=== PATIENT | male | born 1940 | race Caucasian/White ===

== ENCOUNTER 2021-12-30 20:34 | Observation (INO) | payer MEDICARE, MEDICAID, SELFPAY ==
--- NOTE | ~2021-12-30 | MR_ITS ---
MRI OF THE BRAIN WITHOUT IV CONTRAST INDICATION: Question CVA. Slurred speech. COMPARISON: None available. TECHNIQUE: Multiplanar multisequence MR imaging of the brain was obtained without IV contrast. FINDINGS: There is no hydrocephalus, extra-axial surface collection, or herniation. Fairly extensive T2 signal changes within the supratentorial white matter, possibly advanced chronic microangiopathy though nonspecific. Etat crible appearance of the basal ganglia bilaterally as the sequela of chronic hypertension. There are also chronic lacunar infarcts within the deep juarez nuclei bilaterally. The major flow voids at the skull base are preserved. There is no acute infarct on diffusion-weighted imaging. There is no intracranial hemorrhage on the gradient recalled echo acquisition. The midline structures are normal. The cerebellar tonsils are normally positioned. The cerebellum and brainstem are normal. The craniocervical junction is normal. Osseous marrow signal intensity is homogenous. The visualized soft tissues are unremarkable. There is a large right mastoid effusion. MR/MR head/brain wo con IMPRESSION: - Study is limited by motion artifact. No definite acute intracranial findings. No acute infarcts accounting for artifact. - Fairly extensive T2 signal changes within the supratentorial white matter, possibly advanced chronic microangiopathy though nonspecific. - Etat crible appearance of the basal ganglia bilaterally as the sequela of chronic hypertension. There are also chronic lacunar infarcts within the deep juarez nuclei bilaterally. - There is a large right mastoid effusion.
--- NOTE | ~2021-12-30 | CT_ITS ---
EXAMINATION: CT ANGIOGRAM HEAD CT ANGIOGRAM NECK CLINICAL INFORMATION: Reason for Exam slurred speech 10+ hrs COMPARISON: None. TECHNIQUE: Initial noncontrast work force advisor imaging of the head and neck was performed. Noncontrast head CT was also performed. Test bolus sequences followed by intravenous administration 70 mL of Omnipaque 350. Helical imaging was performed in the axial plane from the aortic arch to the skull vertex. Delayed postcontrast imaging of the head was also performed. The data was processed at the nanotechnology engineering technologist's workstation for generation of MIP sequences. Angled MIPs and volume rendered reformatted images were also generated at an offline 3D workstation. Stenoses are assessed in accordance with NASCET criteria unless otherwise indicated. DLP: 2758 mGy-cm This CT examination was performed using dose optimization techniques as appropriate, variously including the following: *Automated exposure control. *Adjustment of mA and/or kV according to patient size (this includes techniques or standardized protocols for targeted exams where dose is matched to indication/reason for exam; i.e. extremities or head). *Use of iterative reconstruction technique. FINDINGS: CT Head: There is no evidence of acute intracranial hemorrhage or edematous territorial infarction. Scattered hypoattenuation in the periventricular and deep white matter are consistent with moderate microangiopathy. Chronic lacunar infarcts involving the right posterior putamen and left thalamus. Patel-white matter differentiation is preserved. The ventricles are normal in size and configuration. No evidence for obstructive hydrocephalus. No abnormal mass effect or midline shift. No extra-axial fluid collections. No pathologic intra-axial enhancement or regional oligemia. No acute soft tissue or osseous abnormalities. Right mastoid and middle ear opacification. Near complete opacification of the diminutive left sphenoid sinus. CT Neck: The thyroid gland and remaining cervical soft tissues are within normal limits. Large bulky bridging anterior osteophytes throughout the cervical and upper thoracic spine, likely related to diffuse idiopathic skeletal hyperostosis. Multilevel moderate to advanced degenerative disc disease. No acute osseous abnormality. CT Upper Chest: The visualized lung apices and upper mediastinum are within normal limits. Median sternotomy wires. Neck CTA: CTA of the neck is somewhat limited due to motion. Aortic Arch: Normal contour and caliber. Classic 3 vessel branching pattern of the aortic arch. Great Vessel Origins: No significant stenosis of the branch origins. Right Common Carotid Artery: No focal stenosis or occlusion. Cervical Right Internal Carotid Artery: Mild calcific atherosclerotic disease of the carotid bulb and proximal internal carotid artery without flow-limiting stenosis. Left Common Carotid Artery: No focal stenosis or occlusion. Cervical Left Internal Carotid Artery: Normal opacification without focal stenosis or occlusion. Cervical Right Vertebral Artery: Vessel origin is not well visualized due to motion. No focal stenosis or occlusion. Cervical Left Vertebral Artery: Vessel origin is not well-visualized due to motion. Dominant left vertebral artery. No focal stenosis or occlusion. Brain CTA: Intracranial Internal Carotid Arteries: Calcific atherosclerotic disease of the intracranial internal carotid arteries without occlusion or flow-limiting stenosis. Right Anterior Cerebral Artery: Normal A1 segment. Normal opacification of the distal ANAI segments. Left Anterior Cerebral Artery: Normal A1 segment. Normal opacification of the distal ANAI segments. Anterior Communicating Artery: Normal. Right Middle Cerebral Artery: Mild irregularity and narrowing of the M1 segment. Normal arborization of the distal segments. Left Middle Cerebral Artery: Normal M1 segment of the MCA without focal stenosis or occlusion. Normal arborization of the distal segments. Right Vertebral Artery: Terminates intradurally predominantly as PICA. Left Vertebral Artery: Mild to moderate stenosis of the proximal intradural left vertebral artery related to calcified atherosclerotic disease. Basilar Artery: Normal without focal stenosis or occlusion. Normal appearance of the proximal superior cerebellar arteries. Right Posterior Cerebral Artery: Normal P1 segment. Normal opacification of the distal DATA REPORTING ANALYST segments. Left Posterior Cerebral Artery: Normal P1 segment. Normal opacification of the distal DATA REPORTING ANALYST segments. Normal opacification of the superior sagittal, straight, transverse, and sigmoid sinuses. CT/CT angio head neck IMPRESSION: 1. No acute intracranial abnormality including hemorrhage, mass effect, hydrocephalus, or acute territorial edematous infarction. 2. No arterial high grade stenosis or large vessel occlusion in the head or neck. Of note, evaluation of the proximal vessels or neck is somewhat limited due to motion, most notably the origins of the vertebral arteries which are not visualized. 3. Moderate chronic microangiopathy and chronic lacunar infarcts involving the right basal ganglia and left thalamus. 4. Opacification of the right mastoid air cells and right middle ear cavity. Correlate clinically for otomastoiditis.
--- NOTE | ~2021-12-30 | XR_ITS ---
EXAMINATION: XR CHEST CLINICAL INFORMATION: Cough. COMPARISON: None TECHNIQUE: Frontal portable view of the chest was obtained. 2238 hours FINDINGS: Status post median sternotomy for CABG. Cardiac and mediastinal contours are normal. No acute abnormality. No pulmonary vascular congestion. No focal airspace disease, no pleural effusion or pneumothorax. Multilevel degenerative spondylosis spine. XR/XR chest 1V IMPRESSION: No acute abnormality of the chest.
--- NOTE | ~2021-12-30 | XR_ITS ---
EXAMINATION: XR CHEST CLINICAL INFORMATION: Aspiration COMPARISON: Previous chest x-ray from yesterday TECHNIQUE: Frontal view of the chest was obtained. FINDINGS: The cardiac and mediastinal contours are stable. There are post-CABG changes. The lung volumes are low. There is crowding of the central bronchovascular markings due to low lung volumes. No definite pneumonia is seen. There is no pleural effusion or pneumothorax. No acute bone abnormality. XR/XR chest 1V IMPRESSION: Low lung volumes. No definite pneumonia seen.
--- NOTE | 2021-12-30 20:44 | ECG_ITS ---
Test Reason : DIZZINESS Blood Pressure : / mmHG Vent. Rate : 073 BPM Atrial Rate : 073 BPM P-R Int : 176 ms QRS Dur : 088 ms QT Int : 372 ms P-R-T Axes : 045 -33 062 degrees QTc Int : 409 ms Normal sinus rhythm Left axis deviation Anterior infarct , age undetermined Abnormal ECG No previous ECGs available Referred By: Hannah Camairllo Electronically Signed By:SIMON COOPER
[2021-12-30 20:54] VITALS: BP 126/49; BP 135/71; PULSE 73; PULSE 78; RESP 21; TEMP 36.6; O2SAT 97; BMI 28.5
--- NOTE | 2021-12-30 20:54 | ED_ITS ---
HPI - General Adult General Stated complaint: AMS Stroke? Time Seen by Provider: 12/30/21 20:43 Source: patient, family and EMS Mode of arrival: EMS Limitations: language barrier and other (Slurred speech) History of Present Illness HPI narrative: Patient comes to the emergency room via EMS from home. Patient moved 2 days ago from [place] and just arrived to [place]. Yesterday, the patient was doing well, at baseline. Even this morning, the patient was doing well. Approximately between noon and 13:00 (8-9 hours ago), the patient and his family went to [facility]. The patient started feeling weird, he refused to go out of the car, his son stated the car with him. Patient started having slurred speech, difficulty finding words, had several episodes of urinary incontinence. The patient states that the urinary incontinence has happened before in [place]. The family denies that this has ever happened. Patient states that he has numbness and tingling around his lips and his tongue, patient aware that his speech is not normal. Patient usually has dentures and does not have him on now. However, the family reports that when they went out shopping and the symptoms started, the patient did have his dentures on. Patient denies falling, no head injuries. Patient is on Plavix and aspirin Related Data Allergies Allergy/AdvReac Type Severity Reaction Status Date / Time No Known Allergies Allergy Verified 12/30/21 20:44 Review of Systems Review of Systems: Constitutional : No Weight loss, No Fever, No Chills, No Night Sweats, No Fatigue, No Malaise ENT/Mouth : No Hearing loss, No Ear Pain, No Nasal Congestion, No Sinus Pain, No Hoarseness, No sore throat, No Rhinorrhea, No Swallowing Difficulty Eyes: No Eye Pain, No Swelling, No Redness, No Foreign Body, No Discharge, No Vision Changes Cardiovascular : No Chest Pain, No SOB, No Dyspnea on Exertion, No Orthopnea, No Edema, No Palpitations Respiratory : No Cough, No Sputum, No Wheezing, No Smoke Exposure, No Dyspnea Gastrointestinal : No Nausea, No Vomiting, No Diarrhea, No Constipation, No abdominal Pain, No Hematochezia, No Melena Genitourinary : no irregular bleeding, No Dysuria, No Urinary Frequency, No Hematuria, No Urinary Incontinence, No Urgency, No Flank Pain, No Urinary Flow Changes, No Hesitancy Musculoskeletal : No joint pain, No Myalgias, No Joint Swelling Skin : No Skin Lesions, No rash Neuro : No headache, no dizziness no loss of consciousness, complaining of difficulty speaking, numbness and tingling around the mouth and the tongue Psych : No Anxiety/Panic, No Depression, No SI/HI/AH/VH, No Social Issues, Heme/Lymph: No Bruising, No Bleeding,No Lymphadenopathy Endocrine : No Polyuria, No Polydipsia, No Temperature Intolerance [facility] Past Medical History Medical History (Updated 12/30/21 @ 21:33 by Hannah Camarillo MD) CVA (cerebral vascular accident) Hypertension Surgical History (Updated 12/30/21 @ 21:07 by Hannah Camarillo MD) Hx of CABG Physical Exam ED Const Other: Appearance: Alert. Oriented X3. No acute distress. Eyes: Pupils equal, round and reactive to light. ENT: Pharynx normal. Neck: Normal inspection. Neck supple. No lymph nodes noted. No crepitus CVS: Normal heart rate and rhythm. Pulses normal. Normal S1 and S2 Respiratory: No respiratory distress. Breath sounds normal. No Wheezing. No rales Abdomen: Soft and nontender. No rigidity. No distention. Skin: Skin warm and dry. Normal skin color. Normal skin turgor. Extremities: +2 pitting edema bilaterally No Lacerations. No Rash Neuro: Oriented X 3. Strength 2/5 in both upper extremities (per patient his strength is at baseline) complaining of difficulty moving both legs (patient states that his legs feel very heavy) Psych: calm, cooperative, normal affect NIH Stroke Scale Level of Consciousness: Alert Level of Consciousness Questions: Answers both questions correctly Level of Consciousness Commands: Performs both tasks correctly Best Gaze: Normal Visual: No visual loss Facial Palsy: Normal Motor Arm (Right): No drift Motor Arm (Left): No drift Motor Leg (Right): Drift Motor Leg (Left): Drift Limb Ataxia: Absent Sensory: Normal Best Language: Mild to moderate aphasia Dysarthia: Mild to moderate dysarthria Extinction and Inattention: No abnormality Score: 4 Course Course Course Narrative: Patient is outside of the window of treatment. All the labs head CT and CTA pending. Patient not a candidate for tPA as he is outside of the window of treatment This is likely a CVA versus TIA. According to the daughter, he has history of 5 CVAs, all which happen in 2004?. Patient will need an MRI in the morning. I discussed the patient with Dr. Callahan who accepted the patient, but will need an update of the patient's labs and CTs. Hemorrhagic stroke not suspected at this time. All Of patient's labs and imaging pending. sign out given to Dr. Suazo Discharge Plan Discharge Clinical Impression: Acute CVA (cerebrovascular accident) Patient Disposition: Admitted As Inpatient
[2021-12-30 20:59] VITALS: BP 126/49; PULSE 72; RESP 22; TEMP 37.3; O2SAT 96
[2021-12-30 21:46] LABS: Basophils Percent Auto 0.2 % (0-2); Lymphocytes Percent Auto 9.4 % (20-40); Mean Corpuscular HGB Conc 33.3 g/dl (31.0-36.0); Mean Corpuscular Hemoglobin 30.2 pg (27.0-33.0); PLT CLUMP 1; SCAN SMEAR FLAG 1
[2021-12-30 21:47] LABS: Appearance Urine Cloudy; Color Urine Yellow; Glucose Urine UA Negative (Negative); Leukocyte Esterase Urine Large (3+) (Negative); Nitrite Urine Negative (Negative); PH 6.5 (5.0-9.0); Urine Blood Moderate (2+) (Negative); Urine Ketones Trace mg/dL (Negative); Urine Protein 30 (1+) mg/dL (Neg-Trace)
[2021-12-30 21:48] LABS: Eosinophils Percent Auto 0.1 % (0-4); Hematocrit 38.1 % (42.0-52.0); Hemoglobin 12.7 g/dl (14.0-18.0); Imm Gran Abs Auto 0.07 X10*3/uL (0.00-0.03); Imm Gran Pct Auto 0.6 % (0.0-0.4); Lymphocytes Absolute Auto 1.2 X10*3/uL (1.2-4.9); Mean Corpuscular Volume 90.5 fL (80.0-98.0); Mean Platelet Volume 10.4 fL (9.4-12.4); Monocytes Absolute Auto 1.2 X10*3/uL (0.1-1.2); Monocytes Percent Auto 9.8 % (2-11); Neutrophils Percent Auto 79.9 % (45-73); Red Blood Count 4.21 X10*6/uL (4.60-5.80)
[2021-12-30 21:54] LABS: MANUAL DIFF FLAG NO; Platelet Count 133 X10*3/uL (160-400); White Blood Count 12.5 X10*3/uL (4.8-10.8)
[2021-12-30 21:58] LABS: INTERNATIONAL NORM RATIO 1.1 (0.9-1.1)
[2021-12-30 22:02] LABS: COVID-19 Test Negative (Negative)
[2021-12-30 22:04] LABS: Alanine Aminotransferase 14 U/L (0-40); Alkaline Phosphatase 75 U/L (39-117); Amphetamine Screen Urine Not Detected (Not Detect); Anion Gap 14 (12-20); Aspartate Amino Transferase 25 U/L (5-37); Barbiturates, Urine Not Detected (Not Detect); Benzodiazepines Screen Urine Not Detected (Not Detect); Bilirubin Direct 0.6 mg/dL (0.0-0.5); Bilirubin Total 1.4 mg/dL (0.0-1.0); Blood Urea Nitrogen 17 mg/dL (9-16); Calcium 8.9 mg/dL (8.4-10.2); Cannabinoid Screen Urine Not Detected (Not Detect); Carbon Dioxide 26 mmol/L (22-29); Chloride 103 mmol/L (96-108); Cocaine Screen Urine Not Detected (Not Detect); Creatinine Clr Calc Pharmacy 62.4; Estimated Glomerular Filt Rate > 60; Ethanol < 10 mg/dL; Fentanyl, urine Not Detected (Not Detect); Glucose Random 118 mg/dL (60-115); Lipase 12 U/L (8-78); Magnesium 1.9 mg/dL (1.6-2.6); Opiate Screen Urine Not Detected (Not Detect); Phencyclidine Screen Urine Not Detected (Not Detect); Potassium 4.1 mmol/L (3.3-5.1); Sodium 139 mmol/L (135-145); Total Protein 6.7 g/dL (6.5-8.0)
[2021-12-30] MEDS: iohexoL 350 MG/ML 100 ML INFUS..BTL IV (22:06)
[2021-12-30 22:08] LABS: B Type Natriuretic Peptide 142 pg/mL (<100); Troponin-I High Sensitivity 7.8 ng/L (<3.5-35.0)
[2021-12-30 22:11] LABS: Bacteria Urine 3+ (None Seen); Hyaline Casts Urine 0-2 /LPF (0-2); RBC Urine >20 /HPF (0-2); Squamous Epithelial Cell Urine 0-2 /HPF (0-2); UACC Culture Trigger YES; WBC Urine >50 /HPF (0-5)
[2021-12-30] MEDS: cefTRIAXone sodium 1 GM in 0.9 % Sodium Chloride 50 ML IV (22:53)
[2021-12-30 23:11] LABS: Lactic Acid 1.1 mmol/L (0.5-2.0)
[2021-12-30] MEDS: Furosemide 100 MG/10 ML VIAL 60 MG IVPUSH (23:18)
[2021-12-30 23:45] VITALS: BP 138/68; PULSE 73; RESP 16; TEMP 36.1; O2SAT 98
--- NOTE | 2021-12-30 23:52 | P.HPHOSP_ITS ---
History of Present Illness Date of Service: 12/30/21 Chief Complaint: urinary incontinence This is an 81-year-old male with past medical history of hypertension, CABG, reported CVA came in from [place] about 2 days ago comes into the hospital with complaints of urinary incontinence and according to family difficult speech. Patient is [place]-speaking only, history is obtained with the help of an spray gun striper Patient reports that he came into the hospital because of urinary incontinence for the past 2 days. His daughter had reported to the ED physician that this is new although patient reports that he has been going on for 2 days, visit also reported a slurred speech, when asked the patient about it, he reports that he has had slurred speech but that is due to his history of CVA and he does not feel that his speech is more slurred than normal. He complaints of chronic lower extremity weakness for which he uses a wheeled walker, he denies any new numbness tingling, no facial numbness or tingling, no facial droop, denies any chest pain, no shortness of breath, no abdominal pain nausea or vomiting, no diarrhea constipation, he does report urinary frequency and incontinence, no dysuria, has urgency Denies lower extremity edema. Reports chronic shortness of breath that has not worsened, and no cough. Patient denies any bowel incontinence On arrival to the ED patient hemodynamically stable with no significant abnormal vitals, blood pressure of 126/49, Labs are significant for WBC count of 12.5, hemoglobin 12.7, hematocrit 38.1, lactic acid of 1.1, BNP of 142, UA that is positive for leukocyte Estrace sent many WBC UDS negative, alcohol less than 10, Head and neck CT angiogram shows no acute intracranial abnormality including hemorrhage, mass effect, hydrocephalus, or acute territorial edematous infarction Patient started on IV antibiotics and will be admitted for further evaluation Review of Systems Review of Systems: Yes all other systems are reviewed and are negative PENDING SALE TO [facility] Medical History (Updated 12/31/21 @ 06:41 by Jose Callahan MD) CAD (coronary artery disease) CHF (congestive heart failure) CVA (cerebral vascular accident) Hypertension Family History (Updated 12/31/21 @ 06:39 by Jose Callahan MD) Other No family history of cerebrovascular accident (CVA) Surgical History (Updated 12/31/21 @ 06:39 by Jose Callahan MD) H/O hernia repair History of appendectomy Hx of CABG Social History (Updated 12/31/21 @ 06:39 by Jose Callahan MD) Alcohol intake: never Patient Tobacco Use Status: Never used Tobacco Use of substances other than those prescribed or required for medical reasons: No Advance Directives: No Advance Directives Information Provided: No Meds Allergies Allergy/AdvReac Type Severity Reaction Status Date / Time No Known Allergies Allergy Verified 12/30/21 20:44 Active Medications: Current Medications Acetaminophen (Acetaminophen 325 Mg Tablet) 650 mg PO Q6H PRN PRN Reason: Pain, Mild (Pain Scale 1-3) Docusate Sodium (Docusate Sodium 100 Mg Capsule) 100 mg PO DAILY PRN PRN Reason: Constipation Enoxaparin Sodium (Enoxaparin Sodium 40 Mg/0.4 Ml Syringe) 40 mg SUBCUT Q24H [place] Ceftriaxone Sodium 1 gm/ (Sodium Chloride) 50 mls @ 100 mls/hr IV Q24H [place] Ondansetron HCl (Ondansetron Hcl 4 Mg/2 Ml Vial) 4 mg IVPUSH Q8H PRN PRN Reason: Nausea and Vomiting Pharmacy Consult (Consult Rx Perform Med Rec) 1 each MISCELLANE ONCE PRN PRN Reason: Consult order Sodium Chloride (0.9 % Sodium Chloride Flush 3 Ml Syringe) [facility] Medications Medication Instructions Recorded Confirmed Last Taken Type amlodipine 10 mg tablet 10 mg PO DAILY 12/30/21 12/30/21 Unknown History aspirin 81 mg tablet 81 mg PO DAILY 12/30/21 12/30/21 Unknown History carvedilol 12.5 mg tablet 12.5 mg PO BID 12/30/21 12/30/21 Unknown History clopidogrel 75 mg tablet 75 mg PO DAILY 12/30/21 12/30/21 Unknown History doxazosin 4 mg tablet 4 mg PO DAILY 12/30/21 12/30/21 Unknown History enalapril maleate 20 mg tablet 20 mg PO BID 12/30/21 12/30/21 Unknown History famotidine 20 mg tablet 20 mg PO DAILY 12/30/21 12/30/21 Unknown History furosemide 20 mg tablet 20 mg PO DAILY 12/30/21 12/30/21 Unknown History gabapentin 100 mg tablet 100 mg PO QPM 12/30/21 12/30/21 Unknown History pravastatin 40 mg PO 1XD 12/30/21 12/30/21 Unknown History Physical Exam Vital Signs and Narrative: Vital Signs: Last Vital Signs Temp 99.2 F 12/30/21 20:59 Pulse 72 12/30/21 20:59 Resp 22 H 12/30/21 20:59 BP 126/49 L 12/30/21 20:59 Pulse Ox 96 12/30/21 20:59 O2 Del Method 12/30/21 20:59 BMI result Body Mass Index 28.5 Const: General: cooperative and no acute distress Orientation/consciousness: patient oriented x3 Eyes: General: appearance normal, both eyes and all related structures Pupils: Equal, round and reactive pupils present Resp: Effort & Inspection: normal respiratory effort Cardio: Rate: regular rate Rhythm: regular rhythm GI: Palpation (GI): Soft to palpation Auscultation: normal bowel sounds Skin: General skin exam: no rashes or lesions noted Neuro: Other: Cranial nerves 2-12 intact, 4/5 in upper extremities 2 to pain and squeezing my hands rather than weakness, lower extremity strength 5/5 bilaterally General: patient oriented x3 Cranial nerves: Yes Equal, round and reactive pupils present Cognition (Neuro): normal cognition Extrem: Other: Strength is 4/5 in upper extremity, but patient reports pain rather than weakness No pedal edema noted by me General: Yes normal to inspection and Yes no pedal edema Results Labs CBC and Chem 7: 12/30/21 21:28 12/30/21 21:28 Labs: Laboratory Results - last 24 hr 12/30/21 12/30/21 12/30/21 21:28 21:28 21:28 MCV 90.5 MCH 30.2 MCHC 33.3 RDW 13.0 Plt Count 133 L MPV 10.4 Immature Gran % (Auto) 0.6 H Neut % (Auto) 79.9 H Lymph % (Auto) 9.4 L [place] % (Auto) 9.8 Eos % (Auto) 0.1 Baso % (Auto) 0.2 Lymph # (Auto) 1.2 [place] # (Auto) 1.2 Eos # (Auto) 0.0 Baso # (Auto) 0.0 Abs Immat Gran (auto) 0.07 H Absolute Neuts (auto) 10.0 H Absolute Nucleated RBC 0.000 Nucleated RBC % (auto) 0.0 PT 13.0 INR 1.1 Anion Gap 14 Estim Creat Clear Calc 62.4 Estimated GFR > 60 Random Glucose 118 H Lactic Acid Calcium 8.9 Magnesium 1.9 Total Bilirubin 1.4 H Direct Bilirubin 0.6 H AST 25 ALT 14 Alkaline Phosphatase 75 B-Natriuretic Peptide Total Protein 6.7 Albumin 4.0 Lipase 12 Urine Color Urine Appearance Urine pH Ur Specific [place] Urine Protein Urine Glucose (UA) Urine Ketones Urine Blood Urine Nitrite Ur Leukocyte Esterase Urine RBC Urine WBC Ur Squamous Epith Cells Urine Bacteria Hyaline Casts Urine Opiates Screen Urine Fentanyl Screen Ur Barbiturates Screen Ur Phencyclidine Scrn Ur Amphetamines Screen U Benzodiazepines Scrn Urine Cocaine Screen U Marijuana (THC) Screen Ethyl Alcohol < 10 COVID-19 (EARL) COVID-19 Home Leasing 12/30/21 12/30/21 12/30/21 21:28 21:28 21:28 MCV MCH MCHC RDW Plt Count MPV Immature Gran % (Auto) Neut % (Auto) Lymph % (Auto) [place] % (Auto) Eos % (Auto) Baso % (Auto) Lymph # (Auto) [place] # (Auto) Eos # (Auto) Baso # (Auto) Abs Immat Gran (auto) Absolute Neuts (auto) Absolute Nucleated RBC Nucleated RBC % (auto) PT INR Anion Gap Estim Creat Clear Calc Estimated GFR Random Glucose Lactic Acid Calcium Magnesium Total Bilirubin Direct Bilirubin AST ALT Alkaline Phosphatase B-Natriuretic Peptide 142 H Total Protein Albumin Lipase Urine Color Yellow Urine Appearance Cloudy Urine pH 6.5 Ur Specific [place] 1.020 Urine Protein 30 (1+) H Urine Glucose (UA) Negative Urine Ketones Trace Urine Blood Moderate (2+) H Urine Nitrite Negative Ur Leukocyte Esterase Large (3+) H Urine RBC >20 H Urine WBC >50 H Ur Squamous Epith Cells 0-2 Urine Bacteria 3+ Hyaline Casts 0-2 Urine Opiates Screen Urine Fentanyl Screen Ur Barbiturates Screen Ur Phencyclidine Scrn Ur Amphetamines Screen U Benzodiazepines Scrn Urine Cocaine Screen U Marijuana (THC) Screen Ethyl Alcohol COVID-19 (EARL) Negative COVID-19 BioSET Com See Note 12/30/21 12/30/21 21:28 22:51 MCV MCH MCHC RDW Plt Count MPV Immature Gran % (Auto) Neut % (Auto) Lymph % (Auto) [place] % (Auto) Eos % (Auto) Baso % (Auto) Lymph # (Auto) [place] # (Auto) Eos # (Auto) Baso # (Auto) Abs Immat Gran (auto) Absolute Neuts (auto) Absolute Nucleated RBC Nucleated RBC % (auto) PT INR Anion Gap Estim Creat Clear Calc Estimated GFR Random Glucose Lactic Acid 1.1 Calcium Magnesium Total Bilirubin Direct Bilirubin AST ALT Alkaline Phosphatase B-Natriuretic Peptide Total Protein Albumin Lipase Urine Color Urine Appearance Urine pH Ur Specific [place] Urine Protein Urine Glucose (UA) Urine Ketones Urine Blood Urine Nitrite Ur Leukocyte Esterase Urine RBC Urine WBC Ur Squamous Epith Cells Urine Bacteria Hyaline Casts Urine Opiates Screen Not Detected Urine Fentanyl Screen Not Detected Ur Barbiturates Screen Not Detected Ur Phencyclidine Scrn Not Detected Ur Amphetamines Screen Not Detected U Benzodiazepines Scrn Not Detected Urine Cocaine Screen Not Detected U Marijuana (THC) Screen Not Detected Ethyl Alcohol COVID-19 ([facility]) COVID-19 Clin Com Imaging Radiologist's Impressions: Impressions Head/Neck CTA 12/30/21 22:06 IMPRESSION: 1. No acute intracranial abnormality including hemorrhage, mass effect, hydrocephalus, or acute territorial edematous infarction. 2. No arterial high grade stenosis or large vessel occlusion in the head or neck. Of note, evaluation of the proximal vessels or neck is somewhat limited due to motion, most notably the origins of the vertebral arteries which are not visualized. 3. Moderate chronic microangiopathy and chronic lacunar infarcts involving the right basal ganglia and left thalamus. 4. Opacification of the right mastoid air cells and right middle ear cavity. Correlate clinically for otomastoiditis. Chest X-Ray 12/30/21 22:39 IMPRESSION: No acute abnormality of the chest. Assessment and Plan (1) Urinary incontinence: Status: Acute (2) Acute UTI: Status: Acute (3) Slurred speech: Status: Acute Plan 81-year-old male who presents to the hospital after arriving from [place] 2 days ago, with a reported history of CAD status post CABG, CHF, HTN, and history of CVA presents to the hospital with urinary incontinence # urinary incontinence - acute - likely secondary to UTI versus CVA less likely - will treat with IV antibiotic - follow cultures - monitor for improvement in bladder control - no history of back injury, no evidence of cauda equina # UTI - has urinary incontinence, significant positive UA - will treat with IV antibiotics - follow cultures # slurred speech? - patient is not wearing his dentures therefore difficult to say but per patient this is not new - a does have upper extremity weakness although it is more related to pain rather than weakness and is bilateral - given the acute urinary incontinence, as well as possible slurred speech noted by family, will obtain MRI of the brain to rule out acute CVA # hypertension - stable - continue her antihypertensives # history of CABG - continue home medications - patient advised to follow with PCP on discharge for evaluation of his meds as he is on Plavix and aspirin # CHF - none exacerbation - continue home Lasix DVT prophylaxis: Lovenox Quality Stroke Does the patient have a stroke diagnosis?: No VTE Prior VTE?: No VTE Risk Level:: Medical - moderate - high VTE Device Contraindication: Treatment Not Indicated VTE Drug Contraindication: N/A - Med Ordered
[2021-12-30 23:59] LABS: Glucose, Whole Blood 115 mg/dL (60-115)
[2021-12-31] VITALS (9 sets, daily range): BP systolic 108–146; BP diastolic 52–72; PULSE 59–78; RESP 16–22; TEMP 35.3–39; O2SAT 95–100
[2021-12-31] MEDS: 0.9 % Sodium Chloride Flush 3 ML SYRINGE IVFLUSH ×4 (00:27→21:14)
[2021-12-31] MEDS: Enoxaparin Sodium 40 MG/0.4 ML SYRINGE SUBCUT ×2 (00:27→21:08)
--- NOTE | 2021-12-31 04:47 | PC.NURSE ---
Patient noted to have dilated pupils, non-reactive to light. Patient's VSS. Patient note to be incontinent of urine, bed sheet changed, personal care provided by by RN's. Dr. Callahan notified via Scaled Inference.
--- NOTE | 2021-12-31 05:06 | PC.NURSE ---
Pt's mentl status assessed with resource recovery engineer at bedside. Patient is alert and oriented x3. Patient denies any pain discomfort. Patient denies SOB. [id number] reports his vision is at baseline-no double/blurry vision. Dr. Callahan notified.
--- NOTE | 2021-12-31 07:15 | PC.NURSE ---
Nurse to nurse report called to C RN, patient to be transferred to room 471-1.
--- NOTE | 2021-12-31 07:15 | PHA.MEDREC ---
Pharmacy Consult ? Medication Reconciliation Pharmacy has completed the medication reconciliation. Reviewed med rec done by nursing; pt has no claim history and came from [place] recently
[2021-12-31] MEDS: Acetaminophen 325 MG TABLET 650 MG PO (08:25)
[2021-12-31 09:06] LABS: MANUAL DIFF FLAG NO
[2021-12-31 09:12] LABS: Basophils Percent Auto 0.2 % (0-2); Hematocrit 37.3 % (42.0-52.0); Hemoglobin 12.5 g/dl (14.0-18.0); Imm Gran Pct Auto 0.7 % (0.0-0.4); Lymphocytes Absolute Auto 1.2 X10*3/uL (1.2-4.9); Mean Corpuscular HGB Conc 33.5 g/dl (31.0-36.0); Mean Corpuscular Hemoglobin 30.3 pg (27.0-33.0); Mean Corpuscular Volume 90.3 fL (80.0-98.0); Mean Platelet Volume 10.8 fL (9.4-12.4); Monocytes Percent Auto 6.9 % (2-11); Neutrophils Absolute Auto 12.5 x10*3/uL (2.0-8.3); Neutrophils Percent Auto 84.2 % (45-73); Platelet Count 117 X10*3/uL (160-400); Red Blood Count 4.13 X10*6/uL (4.60-5.80); Red Cell Distribution Width 13.1 % (11.0-16.0); White Blood Count 14.8 X10*3/uL (4.8-10.8)
[2021-12-31 09:27] LABS: Anion Gap 16 (12-20); Blood Urea Nitrogen 17 mg/dL (9-16); Calcium 8.8 mg/dL (8.4-10.2); Carbon Dioxide 25 mmol/L (22-29); Chloride 105 mmol/L (96-108); Creatinine Clr Calc Pharmacy 60.3; Estimated Glomerular Filt Rate 60; Glucose Random 119 mg/dL (60-115); Potassium 4.1 mmol/L (3.3-5.1); Sodium 142 mmol/L (135-145)
[2021-12-31] MEDS: Doxazosin Mesylate 2 MG TABLET 4 MG PO (09:40)
[2021-12-31] MEDS: Famotidine 20 MG TABLET PO (09:40)
[2021-12-31] MEDS: Clopidogrel Bisulfate 75 MG TABLET PO (09:40)
[2021-12-31] MEDS: Pravastatin Sodium 40 MG TABLET PO (09:40)
[2021-12-31] MEDS: Enalapril Maleate 10 MG TABLET 20 MG PO ×2 (09:40→21:07)
[2021-12-31] MEDS: Furosemide 20 MG TABLET PO (09:40)
[2021-12-31] MEDS: amLODIPine Besylate 10 MG TABLET PO (09:41)
[2021-12-31] MEDS: Aspirin Enteric Coated 81 MG TABLET.DR PO (09:56)
[2021-12-31] MEDS: carvediloL 12.5 MG TABLET PO ×2 (09:56→21:07)
--- NOTE | 2021-12-31 10:17 | MHC.CM.PN ---
EMR REVIEWED, PT ADMITTED W/UTI AND ?CVA, CM MET W/PT VIA INTERNET MARKETING CONSULTANT, PT DELIVERED IMM, ANSWERED A FEW QUESTIONS THEN DIRECTED CM TO CONTACT DTR, WHEN CM ATTEMPTED TO CALL PT'S DTR RAMIREZ, PT'S SON LUCIANO ANSWERED PHONE AND PUT RAMIREZ BOOTH USHER WELL, LUCIANO VERIFIED PT HAS BEEN HERE FROM [place] FOR A FEW DAYS, THAT PT HAS A CANE/WALKER FOR DME AND LIVES W/BOTH LUCIANO AND RAMIREZ AT ADDRESS ON [facility], LUCIANO AND RAMIREZ VERIFIED INSURANCE HAS NOT BEEN CHANGED FROM [place] MEDICARE AND PLAN TO ASSIST PT TO DO SO AND WILL ASSIST PT WITH GETTING A PCP AFTER PT'S MEDICARE IS SWITCHED. ANTIC PT WILL D/C HOME NO SERVICES HE HAS NO PCP W/FAMILY FOR TRANSPORT.
[2021-12-31] MEDS: diphenhydrAMINE HCL 50 MG/ML VIAL 25 MG IVPUSH (12:54)
[2021-12-31] MEDS: methylPREDNISolone Sod Succ 125 MG/2 ML VIAL IVPUSH (12:54)
--- NOTE | 2021-12-31 12:55 | P.PNIM_ITS ---
Subjective Subjective Date of Service: 01/01/22 Interval History: history obtained via lang interpreter, patient noted to have prolonged phase of chewing, as per patient related to not wearing dentures, patient denies headache, dizziness, no new weakness of upper or lower extremity, later after returning from MRI patient noted to have respiratory distress with bilateral expiratory wheeze, tachypnea, oxygen remained stable 94/95 on 2 L. Review of Systems STRATEGY CONSULTANT no headache no dizziness CVS no chest pain GI no nausea, no vomiting, no change in abdominal distension skin no rash Physical Exam Vital Signs: Vital Signs: Last Vital Signs Temp 102.2 F H 12/31/21 12:46 Pulse 77 12/31/21 12:46 Resp 20 12/31/21 12:46 BP 134/59 L 12/31/21 12:46 Pulse Ox 97 12/31/21 12:46 O2 Del Method 12/31/21 12:46 O2 Flow Rate 2 12/31/21 12:46 BMI result Body Mass Index 28.5 Const: Other: General awake alert, mild acute distress. Neck no JVD. CVS regular rate rhythm, Respiratory lungs bilateral expiratory wheeze, no use of accessory muscles Gastrointestinal abdomen soft, distended,nontender, bowel sounds audible,no guarding , no rigidity. Extremities noedema. Neuro . mild left facial weakness, mild left-sided weakness, no pronator drift,speech thick Skin no rash psych appropriate affect Objective Data Active Medications Acetaminophen (Acetaminophen 325 Mg Tablet) 650 mg PO Q6H PRN PRN Reason: Pain, Mild (Pain Scale 1-3) Last Admin: 12/31/21 08:25 Dose: 650 mg Documented By: COLE Albuterol/Ipratropium (Albuterol/Iprat 2.5/0.5mg 3 Ml Ampul.Neb) 3 ml INHALE Q2H PRN PRN Reason: sob Amlodipine Besylate (Amlodipine Besylate 10 Mg Tablet) 10 mg PO DAILY [facility]; Protocol Last Admin: 12/31/21 09:41 Dose: 10 mg Documented By: COLE Aspirin (Aspirin Enteric Coated 81 Mg Tablet.) 81 mg PO DAILY [facility] Last Admin: 12/31/21 09:56 Dose: 81 mg Documented By: COLE Aspirin (Aspirin Enteric Coated 81 Mg Tablet.) 81 mg PO DAILY [facility] Carvedilol (Carvedilol 12.5 Mg Tablet) 12.5 mg PO BID [facility]; Protocol Last Admin: 12/31/21 09:56 Dose: 12.5 mg Documented By: COLE Clopidogrel Bisulfate (Clopidogrel Bisulfate 75 Mg Tablet) 75 mg PO DAILY [facility] Last Admin: 12/31/21 09:40 Dose: 75 mg Documented By: COLE Docusate Sodium (Docusate Sodium 100 Mg Capsule) 100 mg PO DAILY PRN PRN Reason: Constipation Doxazosin Mesylate (Doxazosin Mesylate 2 Mg Tablet) 4 mg PO DAILY [facility]; Protocol Last Admin: 12/31/21 09:40 Dose: 4 mg Documented By: COLE Enalapril Maleate (Enalapril Maleate 10 Mg Tablet) 20 mg PO BID [facility]; Protocol Last Admin: 12/31/21 09:40 Dose: 20 mg Documented By: COLE Enoxaparin Sodium (Enoxaparin Sodium 40 Mg/0.4 Ml Syringe) 40 mg SUBCUT BEDTIME [facility] Last Admin: 12/31/21 00:27 Dose: 40 mg Documented By: ESPERANZA Famotidine (Famotidine 20 Mg Tablet) 20 mg PO DAILY [facility] Last Admin: 12/31/21 09:40 Dose: 20 mg Documented By: COLE Furosemide (Furosemide 20 Mg Tablet) 20 mg PO DAILY [facility]; Protocol Last Admin: 12/31/21 09:40 Dose: 20 mg Documented By: COLE Gabapentin (Gabapentin 100 Mg Capsule) 100 mg PO BEDTIME [place] Gabapentin (Gabapentin 100 Mg Capsule) 100 mg PO BEDTIME [facility] Ceftriaxone Sodium 1 gm/ (Sodium Chloride) 50 mls @ 100 mls/hr IV Q24H [place] Piperacillin Sod/Tazobactam (Sod 3.375 gm/ Sodium Chloride) 50 mls @ 100 mls/hr IV Q6H [facility] Ondansetron HCl (Ondansetron Hcl 4 Mg/2 Ml Vial) 4 mg IVPUSH Q8H PRN PRN Reason: Nausea and Vomiting Pharmacy Consult (Consult Rx Perform Med Rec) 1 each MISCELLANE ONCE PRN PRN Reason: Consult order Pravastatin Sodium (Pravastatin Sodium 40 Mg Tablet) 40 mg PO DAILY [facility] Last Admin: 12/31/21 09:40 Dose: 40 mg Documented By: COLE Sodium Chloride (0.9 % Sodium Chloride Flush 3 Ml Syringe) 3 ml IVFLUSH QSHIFT [place] Last Admin: 12/31/21 08:15 Dose: 3 ml Documented By: COLE Labs CBC & Chem 7: 01/01/22 06:15 01/01/22 06:15 Labs: Laboratory Results - last 24 hr 12/30/21 12/30/21 12/30/21 21:24 21:28 21:28 MCV 90.5 MCH 30.2 MCHC 33.3 RDW 13.0 Plt Count 133 L MPV 10.4 Immature Gran % (Auto) 0.6 H Neut % (Auto) 79.9 H Lymph % (Auto) 9.4 L [place] % (Auto) 9.8 Eos % (Auto) 0.1 Baso % (Auto) 0.2 Lymph # (Auto) 1.2 Me[place] # (Auto) 1.2 Eos # (Auto) 0.0 Baso # (Auto) 0.0 Abs Immat Gran (auto) 0.07 H Absolute Neuts (auto) 10.0 H Absolute Nucleated RBC 0.000 Nucleated RBC % (auto) 0.0 PT 13.0 INR 1.1 Anion Gap Estim Creat Clear Calc Estimated GFR POC Glucose 115 Random Glucose Lactic Acid Calcium Magnesium Total Bilirubin Direct Bilirubin AST ALT Alkaline Phosphatase B-Natriuretic Peptide Total Protein Albumin Lipase Urine Color Urine Appearance Urine pH Ur Specific [place] Urine Protein Urine Glucose (UA) Urine Ketones Urine Blood Urine Nitrite Ur Leukocyte Esterase Urine RBC Urine WBC Ur Squamous Epith Cells Urine Bacteria Hyaline Casts Urine Opiates Screen Urine Fentanyl Screen Ur Barbiturates Screen Ur Phencyclidine Scrn Ur Amphetamines Screen U Benzodiazepines Scrn Urine Cocaine Screen U Marijuana (THC) Screen Ethyl Alcohol COVID-19 ([facility]) COVID-19 Clin Com 12/30/21 12/30/21 12/30/21 21:28 21:28 21:28 MCV MCH MCHC RDW Plt Count MPV Immature Gran % (Auto) Neut % (Auto) Lymph % (Auto) [place] % (Auto) Eos % (Auto) Baso % (Auto) Lymph # (Auto) [place] # (Auto) Eos # (Auto) Baso # (Auto) Abs Immat Gran (auto) Absolute Neuts (auto) Absolute Nucleated RBC Nucleated RBC % (auto) PT INR Anion Gap 14 Estim Creat Clear Calc 62.4 Estimated GFR > 60 POC Glucose Random Glucose 118 H Lactic Acid Calcium 8.9 Magnesium 1.9 Total Bilirubin 1.4 H Direct Bilirubin 0.6 H AST 25 ALT 14 Alkaline Phosphatase 75 B-Natriuretic Peptide 142 H Total Protein 6.7 Albumin 4.0 Lipase 12 Urine Color Urine Appearance Urine pH Ur Specific [place] Urine Protein Urine Glucose (UA) Urine Ketones Urine Blood Urine Nitrite Ur Leukocyte Esterase Urine RBC Urine WBC Ur Squamous Epith Cells Urine Bacteria Hyaline Casts Urine Opiates Screen Urine Fentanyl Screen Ur Barbiturates Screen Ur Phencyclidine Scrn Ur Amphetamines Screen U Benzodiazepines Scrn Urine Cocaine Screen U Marijuana (THC) Screen Ethyl Alcohol < 10 COVID-19 ([facility]) Negative COVID-19 Clin Com See Note 12/30/21 12/30/21 12/30/21 21:28 21:28 22:51 MCV MCH MCHC RDW Plt Count MPV Immature Gran % (Auto) Neut % (Auto) Lymph % (Auto) [place] % (Auto) Eos % (Auto) Baso % (Auto) Lymph # (Auto) [place] # (Auto) Eos # (Auto) Baso # (Auto) Abs Immat Gran (auto) Absolute Neuts (auto) Absolute Nucleated RBC Nucleated RBC % (auto) PT INR Anion Gap Estim Creat Clear Calc Estimated GFR POC Glucose Random Glucose Lactic Acid 1.1 Calcium Magnesium Total Bilirubin Direct Bilirubin AST ALT Alkaline Phosphatase B-Natriuretic Peptide Total Protein Albumin Lipase Urine Color Yellow Urine Appearance Cloudy Urine pH 6.5 Ur Specific [place] 1.020 Urine Protein 30 (1+) H Urine Glucose (UA) Negative Urine Ketones Trace Urine Blood Moderate (2+) H Urine Nitrite Negative Ur Leukocyte Esterase Large (3+) H Urine RBC >20 H Urine WBC >50 H Ur Squamous Epith Cells 0-2 Urine Bacteria 3+ Hyaline Casts 0-2 Urine Opiates Screen Not Detected Urine Fentanyl Screen Not Detected Ur Barbiturates Screen Not Detected Ur Phencyclidine Scrn Not Detected Ur Amphetamines Screen Not Detected U Benzodiazepines Scrn Not Detected Urine Cocaine Screen Not Detected U Marijuana (THC) Screen Not Detected Ethyl Alcohol COVID-19 ([facility]) COVID-19 [employer] 12/31/21 12/31/21 08:51 08:51 MCV 90.3 MCH 30.3 MCHC 33.5 RDW 13.1 Plt Count 117 L MPV 10.8 Immature Gran % (Auto) 0.7 H Neut % (Auto) 84.2 H Lymph % (Auto) 8.0 L [place] % (Auto) 6.9 Eos % (Auto) 0.0 Baso % (Auto) 0.2 Lymph # (Auto) 1.2 [place] # (Auto) 1.0 Eos # (Auto) 0.0 Baso # (Auto) 0.0 Abs Immat Gran (auto) 0.10 H Absolute Neuts (auto) 12.5 H Absolute Nucleated RBC 0.000 Nucleated RBC % (auto) 0.0 PT INR Anion Gap 16 Estim Creat Clear Calc 60.3 Estimated GFR 60 POC Glucose Random Glucose 119 H Lactic Acid Calcium 8.8 Magnesium Total Bilirubin Direct Bilirubin AST ALT Alkaline Phosphatase B-Natriuretic Peptide Total Protein Albumin Lipase Urine Color Urine Appearance Urine pH Ur Specific [place] Urine Protein Urine Glucose (UA) Urine Ketones Urine Blood Urine Nitrite Ur Leukocyte Esterase Urine RBC Urine WBC Ur Squamous Epith Cells Urine Bacteria Hyaline Casts Urine Opiates Screen Urine Fentanyl Screen Ur Barbiturates Screen Ur Phencyclidine Scrn Ur Amphetamines Screen U Benzodiazepines Scrn Urine Cocaine Screen U Marijuana (THC) Screen Ethyl Alcohol COVID-19 ([facility]) COVID-19 Clin Com Microbiology Microbiology Results: Microbiology 12/30/21 21:28 Urine Culture - Preliminary Urine clean catch - Urine juarez top Culture in progress. Assessment and Plan (1) Encephalopathy: Status: Acute (2) Slurred speech: Status: Acute (3) Urinary incontinence: Status: Acute (4) Acute UTI: Status: Acute Plan 81-year-old male who presents to the hospital after arriving from [place] 2 days ago, with a reported history of CAD status post CABG, CHF, HTN, and history of CVA presents to the hospital with urinary incontinence # urinary incontinence likely related to UTI - MRI brain showed no acute abnormality - continue IV ceftriaxone day 2 urine and blood cultures are pending - no history of back injury, no evidence of cauda equina # Acute episode of respiratory distress, with tachypnea, fever, bilateral rhonchi question related to aspiration, patient did not receive contrast treated patient with updraft, Solu Medrol, IV Zosyn, symptoms improved obtain chest x-ray, swallow eval # slurred speech/ prolonged phase of mastication/ lower extremity weakness/ mild left hemiparesis no acute CVA - as per patient no change from baseline and likely related to not wearing dentures, chronic bilateral lower extremity weakness, history of prior lacunar infarction and chronic Advance microangiopathy MRI brain showed no acute infarction obtain speech therapy eval # acute toxic encephalopathy as per daughter patient was confused yesterday, likely due to UTI, this a.m. patient was awake alert answering questions appropriately, after receiving Benadryl patient became more lethargic but arousable follow clinical course. # hypertension - stable - continue amlodipine/ vasotec and follow BP # history of CABG - continue home medications aspirin, Plavix, Coreg, enalapril and statin , outpatient follow-up with PCP and Cardiology # CHF unspecified echo not available - no exacerbation, continue home Lasix DVT prophylaxis:? Lovenox patient will need continued inpatient hospitalization due to urinary incontinence/ UTI on IV antibiotic and with episode of respiratory distress needs close clinical follow-up Quality Stroke Does the patient have a stroke diagnosis?: No VTE Prior VTE?: No VTE Risk Level:: Medical - moderate - high VTE Device Contraindication: Treatment Not Indicated VTE Drug Contraindication: N/A - Med Ordered
[2021-12-31] MEDS: Piperacillin Sodium/Tazobactam 3.375 GM in 0.9 % Sodium Chloride 50 ML IV ×2 (13:24→18:33)
--- NOTE | 2021-12-31 13:26 | PM.NEUROCN ---
History of Present Illness Data of Consult Service Date: 12/31/21 Primary Care Provider: None Physician HPI Reason for consult: slurred speech and incontinence 81 yr man with HBP, CAD s/p bypass, CHF, previous stroke came into the hospital because of urinary incontinence for the past 2 days.?Daughter also reported slurred speech, but patient reports that he has had slurred speech due to his history of multiple CVA, last one 10 yrs ago and he does not feel that his speech is more slurred than normal.?Currently lethargic and unable to give info/ He complaints of chronic lower extremity weakness for which he uses a wheeled walker, he denies any new numbness tingling, no facial numbness or tingling, no facial droop, denies any chest pain, no shortness of breath, no abdominal pain nausea or vomiting, no diarrhea constipation, he does report urinary frequency and incontinence, no dysuria, has urgency Denies lower extremity edema.? Reports chronic shortness of breath that has not worsened, and no cough.? Patient denies any bowel incontinence. MRI shows no acute infarct but extensiv ewhite matter microvacsular dissea and lacunar infarct in right basal ganglia and capsule. CTA negative for any significant occlusive disease in neck or head. 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 no dizziness CVS no chest pain GI no nausea, no vomiting, no change in abdominal distension skin no rash Yes all other systems are reviewed and are negative [facility] Past Medical History Medical History (Updated 12/31/21 @ 13:49 by Ruth Verdin MD) CAD (coronary artery disease) CHF (congestive heart failure) CVA (cerebral vascular accident) Hypertension Family History Family History (Updated 12/31/21 @ 06:39 by Jose Callahan MD) Other No family history of cerebrovascular accident (CVA) Surgical History Surgical History (Updated 12/31/21 @ 06:39 by Jose Callahan MD) H/O hernia repair History of appendectomy Hx of CABG Social History Social History (Updated 12/31/21 @ 06:39 by Jose aCllahan MD) Alcohol intake: never Patient Tobacco Use Status: Never used Tobacco service: No Current occupational status: unemployed Meds Allergies Allergy/AdvReac Type Severity Reaction Status Date / Time No Known Allergies Allergy Verified 12/30/21 20:44 Active Medications: Current Medications Acetaminophen (Acetaminophen 325 Mg Tablet) 650 mg PO Q6H PRN PRN Reason: Pain, Mild (Pain Scale 1-3) Last Admin: 12/31/21 08:25 Dose: 650 mg Albuterol/Ipratropium (Albuterol/Iprat 2.5/0.5mg 3 Ml Ampul.Neb) 3 ml INHALE Q2H PRN PRN Reason: sob Amlodipine Besylate (Amlodipine Besylate 10 Mg Tablet) 10 mg PO DAILY [facility]; Protocol Last Admin: 12/31/21 09:41 Dose: 10 mg Aspirin (Aspirin Enteric Coated 81 Mg Tablet.) 81 mg PO DAILY [facility] Last Admin: 12/31/21 09:56 Dose: 81 mg Aspirin (Aspirin Enteric Coated 81 Mg Tablet.) 81 mg PO DAILY [facility] Carvedilol (Carvedilol 12.5 Mg Tablet) 12.5 mg PO BID [facility]; Protocol Last Admin: 12/31/21 09:56 Dose: 12.5 mg Clopidogrel Bisulfate (Clopidogrel Bisulfate 75 Mg Tablet) 75 mg PO DAILY [facility] Last Admin: 12/31/21 09:40 Dose: 75 mg Docusate Sodium (Docusate Sodium 100 Mg Capsule) 100 mg PO DAILY PRN PRN Reason: Constipation Doxazosin Mesylate (Doxazosin Mesylate 2 Mg Tablet) 4 mg PO DAILY [facility]; Protocol Last Admin: 12/31/21 09:40 Dose: 4 mg Enalapril Maleate (Enalapril Maleate 10 Mg Tablet) 20 mg PO BID [facility]; Protocol Last Admin: 12/31/21 09:40 Dose: 20 mg Enoxaparin Sodium (Enoxaparin Sodium 40 Mg/0.4 Ml Syringe) 40 mg SUBCUT BEDTIME [place] Last Admin: 12/31/21 00:27 Dose: 40 mg Famotidine (Famotidine 20 Mg Tablet) 20 mg PO DAILY [place] Last Admin: 12/31/21 09:40 Dose: 20 mg Furosemide (Furosemide 20 Mg Tablet) 20 mg PO DAILY [facility]; Protocol Last Admin: 12/31/21 09:40 Dose: 20 mg Gabapentin (Gabapentin 100 Mg Capsule) 100 mg PO BEDTIME [place] Gabapentin (Gabapentin 100 Mg Capsule) 100 mg PO BEDTIME [facility] Ceftriaxone Sodium 1 gm/ (Sodium Chloride) 50 mls @ 100 mls/hr IV Q24H [facility] Piperacillin Sod/Tazobactam (Sod 3.375 gm/ Sodium Chloride) 50 mls @ 100 mls/hr IV Q6H [facility] Last Admin: 12/31/21 13:24 Dose: 100 mls/hr Ondansetron HCl (Ondansetron Hcl 4 Mg/2 Ml Vial) 4 mg IVPUSH Q8H PRN PRN Reason: Nausea and Vomiting Pharmacy Consult (Consult Rx Perform Med Rec) 1 each MISCELLANE ONCE PRN PRN Reason: Consult order Pravastatin Sodium (Pravastatin Sodium 40 Mg Tablet) 40 mg PO DAILY [facility] Last Admin: 12/31/21 09:40 Dose: 40 mg Sodium Chloride (0.9 % Sodium Chloride Flush 3 Ml Syringe) 3 ml IVFLUSH QSHIFT [facility] Last Admin: 12/31/21 08:15 Dose: 3 ml Home Medications Medication Instructions Recorded Confirmed Last Taken Type amlodipine 10 mg tablet 10 mg PO DAILY 12/30/21 12/30/21 Unknown History carvedilol 12.5 mg tablet 12.5 mg PO BID 12/30/21 12/30/21 Unknown History clopidogrel 75 mg tablet 75 mg PO DAILY 12/30/21 12/30/21 Unknown History doxazosin 4 mg tablet 4 mg PO DAILY 12/30/21 12/30/21 Unknown History enalapril maleate 20 mg tablet 20 mg PO BID 12/30/21 12/30/21 Unknown History famotidine 20 mg tablet 20 mg PO DAILY 12/30/21 12/30/21 Unknown History furosemide 20 mg tablet 20 mg PO DAILY 12/30/21 12/30/21 Unknown History pravastatin 40 mg PO 1XD 12/30/21 12/30/21 Unknown History aspirin 81 mg tablet,delayed 81 mg PO DAILY 12/31/21 12/31/21 Unknown History release gabapentin 100 mg capsule 100 mg PO BEDTIME 12/31/21 12/31/21 Unknown History Physical Exam Vital Signs: Vital Signs: Last Vital Signs Temp 102.2 F H 12/31/21 12:46 Pulse 77 12/31/21 12:46 Resp 20 12/31/21 12:46 BP 134/59 L 12/31/21 12:46 Pulse Ox 97 12/31/21 12:46 O2 Del Method 12/31/21 12:46 O2 Flow Rate 2 12/31/21 12:46 BMI result Body Mass Index 28.5 Const: Other: General awake alert, mild acute distress. Neck no JVD. CVS regular rate rhythm, Respiratory lungs bilateral expiratory wheeze, no use of accessory muscles Gastrointestinal abdomen soft, distended,nontender, bowel sounds audible,no guarding , no rigidity. Extremities noedema. Neuro . Skin no rash psych appropriate affect General: cooperative and no acute distress Orientation/consciousness: oriented to person Eyes: General: appearance normal, both eyes and all related structures Pupils: Equal, round and reactive pupils present Resp: Effort & Inspection: normal respiratory effort Cardio: Rate: regular rate Rhythm: regular rhythm GI: Palpation (GI): Soft to palpation Auscultation: normal bowel sounds Skin: General skin exam: no rashes or lesions noted Neuro: Other: He is very lethargic but arousable. Speech is very thick and an understandable slurred. Visual ayala are full to confrontation. He has a left facial weakness and mild left hemiparesis. Plantar response is flexor. Neck is supple. He is febrile at 102. General: oriented to person Cranial nerves: Yes Equal, round and reactive pupils present Cognition (Neuro): abnormal cognition Extrem: Other: Strength is 4/5 in upper extremity, but patient reports pain rather than weakness No pedal edema noted by me General: Yes normal to inspection and Yes no pedal edema Results Labs CBC & Chem 7: 12/31/21 08:51 12/31/21 08:51 Labs: Short CBC 12/30/21 12/31/21 Range/Units 21:28 08:51 WBC 12.5 H 14.8 H (4.8-10.8) X10*3/uL Hgb 12.7 L 12.5 L (14.0-18.0) g/dl Hct 38.1 L 37.3 L (42.0-52.0) % Plt Count 133 L 117 L (160-400) X10*3/uL BMP 12/30/21 12/31/21 21:28 08:51 Sodium 139 142 Potassium 4.1 4.1 Chloride 103 105 Carbon Dioxide 26 25 BUN 17 H 17 H Creatinine 1.13 1.17 Calcium 8.9 8.8 Liver Function 12/30/21 Range/Units 21:28 Total Bilirubin 1.4 H (0.0-1.0) mg/dL Direct Bilirubin 0.6 H (0.0-0.5) mg/dL AST 25 (5-37) U/L ALT 14 (0-40) U/L Alkaline Phosphatase 75 (39-117) U/L Albumin 4.0 (3.5-5.0) g/dL Urine 12/30/21 Range/Units 21:28 Urine Color Yellow Urine Appearance Cloudy Urine pH 6.5 (5.0-9.0) Ur Specific [place] 1.020 (1.005-1.025) Urine Protein 30 (1+) H (Neg-Trace) mg/dL Urine Glucose (UA) Negative (Negative) mg/dL Microbiology Microbiology Results: Microbiology 12/30/21 21:28 Urine clean catch - Urine juarez top Urine Culture - Preliminary Culture in progress. Assessment and Plan (1) Urinary incontinence: Status: Acute (2) Acute UTI: Status: Acute (3) Slurred speech: Status: Acute (4) Encephalopathy: Status: Acute Probable infectious or metabolic encephalopathy superimposed on previous strokes, multiple in the paast mostly small vessel disease with the last one 10 years ago with residual left hemiparesis and mild dysarthria which seems to be worse with the mental status deterioration and up condition. Recommendation cultures and blood and urine chest x-ray workup for infectious causes. If he gets worse he may need a lumbar puncture also. Check all metabolic parameters. He does not appear to have an acute stroke. Plan 81-year-old male who presents to the hospital after arriving from [place] 2 days ago, with a reported history of CAD status post CABG, CHF, HTN, and history of CVA presents to the hospital with urinary incontinence # urinary incontinence likely related to UTI - MRI brain showed no acute abnormality - continue IV ceftriaxone day 2 urine and blood cultures are pending - no history of back injury, no evidence of cauda equina # Acute episode of respiratory distress, with tachypnea, fever, bilateral rhonchi question related to aspiration, patient did not receive contrast treated patient with updraft, Solu Medrol, IV Zosyn will obtain chest x-ray, swallow eval # slurred speech/ prolonged phase of mastication - as per patient no change from baseline and likely related to not wearing dentures, history of prior lacunar infarction and chronic Advance microangiopathy MRI brain showed no acute infarction obtain speech therapy eval # hypertension - stable - continue amlodipine/ vasotec and follow BP # history of CABG - continue home medications aspirin, Plavix, Coreg, enalapril and statin , outpatient follow-up with PCP and Cardiology # CHF unspecified echo not available - no exacerbation, continue home Lasix DVT prophylaxis:? Lovenox patient will need continued inpatient hospitalization due to urinary incontinence/ UTI on IV antibiotic and with episode of respiratory distress needs close clinical follow-up Procedures Date of Service Date of Service: 12/31/21
--- NOTE | 2021-12-31 17:43 | MHC.SL.SWA ---
Speech Pathologist Impression: Risk of Aspiration Due to: Neurological Condition Dysphasia Diet Status: Liquid Consistency and Strategies for Safe Swallow: Liquid Intake Recommendation: [place] Thick Liquid Intake Strategies: Liquids by Teaspoon Only Solid Food Consistency: Dietary Recommendations: Grnd/Mech Altered (NDD2) Additional Modifications to Solid Foods: Recommend liquids by spoon only. Patient may need specific cueing, assistance for ingestion of liquid in this manner. Recommend supervision at all meals, aspiration precautions apply. Oral Medication Intake: Crushed with Puree Please contact the pharmacy regarding appropriate crushable or liquid drug formulations that are available whenever modified delivery is recommended. Compensatory Strategies and Precautions to be Taken for Safe Swallow: Sitting Upright (90 deg) No Straw Liquids from Spoon Rate of Ingestion Change Supervision While Eating and Drinking for Safe Swallow: Total Supervision (1:1) Foods to Avoid: Avoid mixed consistencies, blend any sauce/gravy well with food. Swallowing Recommended Treatments: Compens. Strategy Educat. Recommendation for Speech: Inpatient Speech Therapy Comment: Patient presents with oral pharyngeal dysphagia, with a unilateral L oral weakness and edentulous state. Oral phase of swallow is moderately prolonged on solids greater than puree due to mastication. Patient evidenced coughing when taking cup sips of liquid, but tolerated nectar thick liquid by spoon s/s clinical signs of aspiration. Recommend UPGRADE diet to Ground Mechanical/Altered with [place] Thick liquids by spoon only, Pills Crushed in Puree. Recommendations communicated by secure text to , RD and Nursing. CONTINUOUS PROCESS MACHINE OPERATOR will continue to follow to re-assess swallow, monitor toleration of diet, upgrade diet consistencies if warranted. Additional note: Patient presents with a moderate to severe dysarthria, daughter reports this has persisted since patient had stroke in 2004. Frequency/Duration: Date Range for Service Req: Timeline to reassess: Second Worker Clinican/Clinical Fellow: No Supervisory Statement: I have reviewed and agree with the student/clinical fellow's documentation: N/A Speech Language Pathologist: Keshia Bundy M.A., CCC-CONTINUOUS PROCESS MACHINE OPERATOR
[2021-12-31] MEDS: Gabapentin 100 MG CAPSULE PO (21:05)
[2021-12-31] MEDS: cefTRIAXone sodium 1 GM in 0.9 % Sodium Chloride 50 ML IV (21:13)
[2022-01-01] VITALS (7 sets, daily range): BP systolic 104–130; BP diastolic 52–70; PULSE 54–65; RESP 16–18; TEMP 36.4–37.1; O2SAT 93–98
[2022-01-01] MEDS: Piperacillin Sodium/Tazobactam 3.375 GM in 0.9 % Sodium Chloride 50 ML IV ×4 (00:18→20:03)
[2022-01-01 06:41] LABS: Hemoglobin 12.5 g/dl (14.0-18.0); Mean Platelet Volume 11.3 fL (9.4-12.4); Red Cell Distribution Width 13.1 % (11.0-16.0)
[2022-01-01 06:43] LABS: Hematocrit 37.9 % (42.0-52.0); Mean Corpuscular Hemoglobin 30.1 pg (27.0-33.0); Mean Corpuscular Volume 91.3 fL (80.0-98.0); Red Blood Count 4.15 X10*6/uL (4.60-5.80)
[2022-01-01 06:45] LABS: Platelet Count 98 X10*3/uL (160-400); White Blood Count 15.4 X10*3/uL (4.8-10.8)
[2022-01-01 07:07] LABS: Anion Gap 17 (12-20); Blood Urea Nitrogen 30 mg/dL (9-16); Calcium 8.5 mg/dL (8.4-10.2); Carbon Dioxide 25 mmol/L (22-29); Chloride 105 mmol/L (96-108); Creatinine Clr Calc Pharmacy 51.8; Estimated Glomerular Filt Rate 50; Glucose Random 148 mg/dL (60-115); Potassium 4.3 mmol/L (3.3-5.1); Sodium 143 mmol/L (135-145)
[2022-01-01] MEDS: Famotidine 20 MG TABLET PO (08:13)
[2022-01-01] MEDS: Enalapril Maleate 10 MG TABLET 20 MG PO ×2 (08:13→20:03)
[2022-01-01] MEDS: Doxazosin Mesylate 2 MG TABLET 4 MG PO (08:13)
[2022-01-01] MEDS: amLODIPine Besylate 10 MG TABLET PO (08:13)
[2022-01-01] MEDS: Pravastatin Sodium 40 MG TABLET PO (08:14)
[2022-01-01] MEDS: Furosemide 20 MG TABLET PO (08:14)
[2022-01-01] MEDS: carvediloL 12.5 MG TABLET PO ×2 (08:14→20:03)
[2022-01-01] MEDS: Clopidogrel Bisulfate 75 MG TABLET PO (08:14)
[2022-01-01] MEDS: Aspirin Enteric Coated 81 MG TABLET.DR PO (08:15)
[2022-01-01] MEDS: 0.9 % Sodium Chloride Flush 3 ML SYRINGE IVFLUSH ×3 (08:16→20:04)
--- NOTE | 2022-01-01 08:27 | PC.NURSE ---
Patient appears much better today. Breathing is unlabored, transitioned to room air, patient still having hard time swallowing. On nectar thick. Patient reports feeling better today although c/o of gas. abdomen distended, no pain.. Bladder scan 240ccs, [place] cath in place, minimal drainage. Patient does report he has hernia in abdomen and would like to further workup.
--- NOTE | 2022-01-01 11:05 | MHC.SL.SWA ---
Speech Pathologist Impression: Risk of Aspiration Due to: Neurological Condition Dysphasia Diet Status: Recommend continue diet of Ground/Mechanical Altered with [place] Thick Liquids, pills crushed in puree. Liquid Consistency and Strategies for Safe Swallow: Liquid Intake Recommendation: [place] Thick Liquid Intake Strategies: Small Sips No Straws Solid Food Consistency: Dietary Recommendations: Grnd/Mech Altered (NDD2) Additional Modifications to Solid Foods: Recommend liquids by spoon only. Patient may need specific cueing, assistance for ingestion of liquid in this manner. Recommend supervision at all meals, aspiration precautions apply. Oral Medication Intake: Crushed with Puree Please contact the pharmacy regarding appropriate crushable or liquid drug formulations that are available whenever modified delivery is recommended. Compensatory Strategies and Precautions to be Taken for Safe Swallow: Sitting Upright (90 deg) No Straw Liquids from Cup Small Bites and Sips Alternate Liquids/Solids Supervision While Eating and Drinking for Safe Swallow: Intermittent Supervision Foods to Avoid: Avoid mixed consistencies, blend any sauce/gravy well with food. Swallowing Recommended Treatments: Compens. Strategy Educat. Recommendation for Speech: Inpatient Speech Therapy Comment: Patient seen this morning at breakfast to assess toleration of recommended diet. Patient had mostly finished his breakfast, eating everything on tray except peaches. Observed patient self feeding peaches with mild delay of oral phase due to mastication without dentures, timely swallow, no clinical signs of aspiration. Patient had large container of water with straw in it at bedside, with most of it already consumed. Patient self reported that he often has difficulty drinking water, though main c/o was air getting trapped, followed by burping and coughing. However he self reported concern about liquids going down the wrong way. Observed patient taking straw sip of thin liquid (water), with patient clearly experiencing trapped air, burping, discomfort on sip. Talked to nursing about not leaving patient with water and straws. Patient today managed liquids well from sippy cup given with meal, no clinical signs of aspiration. Recommend continue diet of Ground/Mechanical Altered with [place] Thick Liquids, pills crushed in puree. Frequency/Duration: Date Range for Service Req: Timeline to reassess: Sex Offender Treatment Professional Clinican/Clinical Fellow: No Supervisory Statement: I have reviewed and agree with the student/clinical fellow's documentation: N/A Speech Language Pathologist: Keshia Bundy M.A., CCC-BUTCHER HEAD
--- NOTE | 2022-01-01 12:21 | P.PNIM_ITS ---
Subjective Subjective Date of Service: 01/01/22 Interval History: patient awake alert, noted to be unsteady while walking to commode, denies chest pain, no shortness of breath, no lightheadedness, no dizziness, answering questions appropriately, denies new weakness no change in speech, no acute overnight events, history obtained via gear machine operator general Review of Systems Review of Systems: Yes all other systems are reviewed and are negative Physical Exam Vital Signs: Vital Signs: Last Vital Signs Temp 98.2 F 01/01/22 11:22 Pulse 65 01/01/22 11:22 Resp 16 01/01/22 11:22 BP 111/55 L 01/01/22 11:22 Pulse Ox 95 01/01/22 11:22 O2 Del Method 01/01/22 11:22 O2 Flow Rate 2 01/01/22 07:20 BMI result Body Mass Index 28.5 Const: Other: General? awake alert, no distress Neck no JVD. CVS? regular rate rhythm, Respiratory lungs clear to auscultation,? no wheeze, no use of accessory muscles Gastrointestinal abdomen soft,? distended,nontender, bowel sounds audible,no guarding , no rigidity. Extremities noedema. Neuro . mild left facial weakness, mild left-sided weakness, no pronator drift,speech thick no change in neuro exam Skin no rash psych appropriate affect Objective Data Active Medications Acetaminophen (Acetaminophen 325 Mg Tablet) 650 mg PO Q6H PRN PRN Reason: Pain, Mild (Pain Scale 1-3) Last Admin: 12/31/21 08:25 Dose: 650 mg Documented By: COLE Albuterol/Ipratropium (Albuterol/Iprat 2.5/0.5mg 3 Ml Ampul.Neb) 3 ml INHALE Q2H PRN PRN Reason: sob Amlodipine Besylate (Amlodipine Besylate 10 Mg Tablet) 10 mg PO DAILY [facility]; Protocol Last Admin: 01/01/22 08:13 Dose: 10 mg Documented By: LETTY Aspirin (Aspirin Enteric Coated 81 Mg Tablet.) 81 mg PO DAILY [facility] Last Admin: 01/01/22 08:17 Dose: Not Given Documented By: LETTY Non-Admin Reason: Duplicate Order Aspirin (Aspirin Enteric Coated 81 Mg Tablet.) 81 mg PO DAILY [facility] Last Admin: 01/01/22 08:15 Dose: 81 mg Documented By: LETTY Carvedilol (Carvedilol 12.5 Mg Tablet) 12.5 mg PO BID [facility]; Protocol Last Admin: 01/01/22 08:14 Dose: 12.5 mg Documented By: LETTY Clopidogrel Bisulfate (Clopidogrel Bisulfate 75 Mg Tablet) 75 mg PO DAILY [facility] Last Admin: 01/01/22 08:14 Dose: 75 mg Documented By: LETTY Docusate Sodium (Docusate Sodium 100 Mg Capsule) 100 mg PO DAILY PRN PRN Reason: Constipation Doxazosin Mesylate (Doxazosin Mesylate 2 Mg Tablet) 4 mg PO DAILY [facility]; Protocol Last Admin: 01/01/22 08:13 Dose: 4 mg Documented By: LETTY Enalapril Maleate (Enalapril Maleate 10 Mg Tablet) 20 mg PO BID [facility]; Protocol Last Admin: 01/01/22 08:13 Dose: 20 mg Documented By: LETTY Enoxaparin Sodium (Enoxaparin Sodium 40 Mg/0.4 Ml Syringe) 40 mg SUBCUT BEDTIME [place] Last Admin: 12/31/21 21:08 Dose: 40 mg Documented By: DIMA Famotidine (Famotidine 20 Mg Tablet) 20 mg PO DAILY [place] Last Admin: 01/01/22 08:13 Dose: 20 mg Documented By: LETTY Furosemide (Furosemide 20 Mg Tablet) 20 mg PO DAILY [facility]; Protocol Last Admin: 01/01/22 08:14 Dose: 20 mg Documented By: LETTY Gabapentin (Gabapentin 100 Mg Capsule) 100 mg PO BEDTIME [place] Last Admin: 12/31/21 21:26 Dose: Not Given Documented By: DIMA Non-Admin Reason: Duplicate Order Ceftriaxone Sodium 1 gm/ (Sodium Chloride) 50 mls @ 100 mls/hr IV Q24H [place] Last Infusion: 12/31/21 21:53 Dose: 0 mls/hr Documented By: DIMA Piperacillin Sod/Tazobactam (Sod 3.375 gm/ Sodium Chloride) 50 mls @ 100 mls/hr IV Q6H [facility] Last Infusion: 01/01/22 06:39 Dose: 0 mls/hr Documented By: ELIAN Ondansetron HCl (Ondansetron Hcl 4 Mg/2 Ml Vial) 4 mg IVPUSH Q8H PRN PRN Reason: Nausea and Vomiting Pharmacy Consult (Consult Rx Perform Med Rec) 1 each MISCELLANE ONCE PRN PRN Reason: Consult order Pravastatin Sodium (Pravastatin Sodium 40 Mg Tablet) 40 mg PO DAILY [facility] Last Admin: 01/01/22 08:14 Dose: 40 mg Documented By: LETTY Sodium Chloride (0.9 % Sodium Chloride Flush 3 Ml Syringe) 3 ml IVFLUSH QSHIFT [facility] Last Admin: 01/01/22 08:16 Dose: 3 ml Documented By: LETTY Labs CBC & Chem 7: 01/01/22 06:15 01/01/22 06:15 Labs: Laboratory Results - last 24 hr 01/01/22 01/01/22 06:15 06:15 MCV 91.3 MCH 30.1 MCHC 33.0 RDW 13.1 Plt Count 98 L MPV 11.3 Absolute Nucleated RBC 0.000 Nucleated RBC % (auto) 0.0 Anion Gap 17 Estim Creat Clear Calc 51.8 Estimated GFR 50 Random Glucose 148 H Calcium 8.5 Microbiology Microbiology Results: Microbiology 12/30/21 21:28 Urine Culture - Preliminary Urine clean catch - Urine juarez top Gram negative tabby 12/30/21 22:51 Blood Culture - Preliminary Blood - Venous No growth after 24 hours. 12/30/21 22:51 Blood Culture - Preliminary Blood - Venous No growth after 24 hours. Assessment and Plan (1) Encephalopathy: Status: Acute (2) Slurred speech: Status: Acute (3) Urinary incontinence: Status: Acute (4) Acute UTI: Status: Acute Plan 81-year-old male who presents to the hospital after arriving from [place] 2 days ago, with a reported history of CAD status post CABG, CHF, HTN, and history of CVA presents to the hospital with urinary incontinence # urinary incontinence likely related to UTI - MRI brain showed no acute abnormality - continue IV ceftriaxone day 3 urine culture growing Gram-negative rods and blood cultures negative times 24 hours, follow clinical course, WBC elevated likely due to IV steroids # Acute episode of respiratory distress, with tachypnea, fever, bilateral rhonchi question related to aspiration, patient did not receive contrast chest x-ray unremarkable, no recurrence of symptoms, finger oximetry 95 on room air, on IV Zosyn, being followed by speech # slurred speech/ prolonged phase of mastication no acute CVA, chronic lower extremity weakness due to prior CVA, MRI showed chronic lacunar infarction and chronic Advance microangiopathy being followed by speech therapy diet modified obtain PT eval # acute toxic encephalopathy resolved was likely due to UTI # hypertension - stable - continue amlodipine/ vasotec and follow BP # history of CABG - continue home medications aspirin, Plavix, Coreg, enalapril and statin , outpatient follow-up with PCP and Cardiology # CHF unspecified echo not available - no exacerbation, continue home Lasix DVT prophylaxis:? Lovenox patient will need continued inpatient hospitalization due to urinary incontinence/ UTI on IV antibiotic waiting for final urine cultures and need PT eval for weakness Quality Stroke Does the patient have a stroke diagnosis?: No VTE Prior VTE?: No VTE Risk Level:: Medical - moderate - high VTE Device Contraindication: Treatment Not Indicated VTE Drug Contraindication: N/A - Med Ordered
[2022-01-01] MEDS: Gabapentin 100 MG CAPSULE PO (20:03)
[2022-01-01] MEDS: Enoxaparin Sodium 40 MG/0.4 ML SYRINGE SUBCUT (20:03)
[2022-01-01] MEDS: cefTRIAXone sodium 1 GM in 0.9 % Sodium Chloride 50 ML IV (20:55)
[2022-01-02] VITALS (7 sets, daily range): BP systolic 124–153; BP diastolic 57–78; PULSE 58–105; RESP 18–20; TEMP 36.6–37.2; O2SAT 94–98
[2022-01-02] MEDS: Piperacillin Sodium/Tazobactam 3.375 GM in 0.9 % Sodium Chloride 50 ML IV ×2 (00:01→07:19)
[2022-01-02] MEDS: 0.9 % Sodium Chloride Flush 3 ML SYRINGE IVFLUSH ×3 (07:19→20:18)
[2022-01-02] MEDS: Famotidine 20 MG TABLET PO (07:54)
[2022-01-02] MEDS: Clopidogrel Bisulfate 75 MG TABLET PO (07:54)
[2022-01-02] MEDS: Enalapril Maleate 10 MG TABLET 20 MG PO ×2 (07:54→20:09)
[2022-01-02] MEDS: amLODIPine Besylate 10 MG TABLET PO (07:55)
[2022-01-02] MEDS: Pravastatin Sodium 40 MG TABLET PO (07:55)
[2022-01-02] MEDS: Doxazosin Mesylate 2 MG TABLET 4 MG PO (07:55)
[2022-01-02] MEDS: Furosemide 20 MG TABLET PO (07:55)
[2022-01-02] MEDS: carvediloL 12.5 MG TABLET PO ×2 (07:56→20:09)
[2022-01-02 09:03] LABS: Hematocrit 37.7 % (42.0-52.0); Hemoglobin 12.4 g/dl (14.0-18.0); Mean Corpuscular HGB Conc 32.9 g/dl (31.0-36.0); Mean Corpuscular Hemoglobin 29.9 pg (27.0-33.0); Mean Corpuscular Volume 90.8 fL (80.0-98.0); Mean Platelet Volume 11.9 fL (9.4-12.4); Platelet Count 113 X10*3/uL (160-400); Red Blood Count 4.15 X10*6/uL (4.60-5.80); Red Cell Distribution Width 12.7 % (11.0-16.0); White Blood Count 14.8 X10*3/uL (4.8-10.8)
--- NOTE | 2022-01-02 13:21 | P.PNIM_ITS ---
Subjective Subjective Date of Service: 01/02/22 Interval History: History obtained via pattern technician, patient is sitting up in bed offers no acute complaints, no urinary symptoms of frequency urgency, no nausea, no vomiting, no abdominal pain, no new neurological weakness, unchanged speech . Review of Systems PETS SALESPERSON no headache no dizziness CVS no chest pain, no palpitation GI no nausea, no vomiting Review of Systems: Yes all other systems are reviewed and are negative Physical Exam Vital Signs: Vital Signs: Last Vital Signs Temp 98.1 F 01/02/22 12:00 Pulse 58 01/02/22 12:00 Resp 18 01/02/22 12:00 BP 131/62 01/02/22 12:00 Pulse Ox 97 01/02/22 12:00 O2 Del Method 01/02/22 12:00 O2 Flow Rate 2 01/01/22 07:20 BMI result Body Mass Index 28.5 Const: Other: General? awake alert,? no distress Neck no JVD. CVS? regular rate rhythm, Respiratory lungs clear to auscultation,? no wheeze, no use of accessory muscles Gastrointestinal abdomen soft,? distended,nontender, bowel sounds audible,no gua rding , no rigidity. Extremities noedema. Neuro . mild left facial weakness, normal hand tick sewer, no pronator drift,speech thick no change in neuro exam, good bilateral LE strength Skin no rash psych appropriate affect Objective Data Active Medications Acetaminophen (Acetaminophen 325 Mg Tablet) 650 mg PO Q6H PRN PRN Reason: Pain, Mild (Pain Scale 1-3) Last Admin: 12/31/21 08:25 Dose: 650 mg Documented By: COLE Albuterol/Ipratropium (Albuterol/Iprat 2.5/0.5mg 3 Ml Ampul.Neb) 3 ml INHALE Q2H PRN PRN Reason: sob Amlodipine Besylate (Amlodipine Besylate 10 Mg Tablet) 10 mg PO DAILY [facility]; Pr otocol Last Admin: 01/02/22 07:55 Dose: 10 mg Documented By: COLE Aspirin (Aspirin Enteric Coated 81 Mg Tablet.) 81 mg PO DAILY [facility] Last Admin: 01/02/22 07:59 Dose: Not Given Documented By: COLE Non-Admin Reason: cannot be crushed Carvedilol (Carvedilol 12.5 Mg Tablet) 12.5 mg PO BID [facility]; Protocol Last Admin: 01/02/22 07:56 Dose: 12.5 mg Documented By: COLE Clopidogrel Bisulfate (Clopidogrel Bisulfate 75 Mg Tablet) 75 mg PO DAILY [facility] Last Admin: 01/02/22 07:54 Dose: 75 mg Documented By: COLE Docusate Sodium (Docusate Sodium 100 Mg Capsule) 100 mg PO DAILY PRN PRN Reason: Constipation Doxazosin Mesylate (Doxazosin Mesylate 2 Mg Tablet) 4 mg PO DAILY [facility]; Protocol Last Admin: 01/02/22 07:55 Dose: 4 mg Documented By: COLE Enalapril Maleate (Enalapril Maleate 10 Mg Tablet) 20 mg PO BID [facility]; Protocol Last Admin: 01/02/22 07:54 Dose: 20 mg Documented By: COLE Enoxaparin Sodium (Enoxaparin Sodium 40 Mg/0.4 Ml Syringe) 40 mg SUBCUT BEDTIME [facility] Last Admin: 01/01/22 20:03 Dose: 40 mg Documented By: LESLIE Famotidine (Famotidine 20 Mg Tablet) 20 mg PO DAILY [facility] Last Admin: 01/02/22 07:54 Dose: 20 mg Documented By: COLE Furosemide (Furosemide 20 Mg Tablet) 20 mg PO DAILY [facility]; Protocol Last Admin: 01/02/22 07:55 Dose: 20 mg Documented By: COLE Gabapentin (Gabapentin 100 Mg Capsule) 100 mg PO BEDTIME [facility] Last Admin: 01/01/22 20:03 Dose: 100 mg Documented By: LESLIE Ceftriaxone Sodium 1 gm/ (Sodium Chloride) 50 mls @ 100 mls/hr IV Q24H [facility] Last Infusion: 01/01/22 21:45 Dose: 0 mls/hr Documented By: LESLIE Ondansetron HCl (Ondansetron Hcl 4 Mg/2 Ml Vial) 4 mg IVPUSH Q8H PRN PRN Reason: Nausea and Vomiting Pharmacy Consult (Consult Rx Perform Med Rec) 1 each MISCELLANE ONCE PRN PRN Reason: Consult order Pravastatin Sodium (Pravastatin Sodium 40 Mg Tablet) 40 mg PO DAILY [facility] Last Admin: 01/02/22 07:55 Dose: 40 mg Documented By: COLE Sodium Chloride (0.9 % Sodium Chloride Flush 3 Ml Syringe) 3 ml IVFLUSH QSHIFT [facility] Last Admin: 01/02/22 07:19 Dose: 3 ml Documented By: COLE Labs CBC & Chem 7: 01/02/22 08:35 01/01/22 06:15 Labs: Laboratory Results - last 24 hr 01/02/22 08:35 MCV 90.8 MCH 29.9 MCHC 32.9 RDW 12.7 Plt Count 113 L MPV 11.9 Absolute Nucleated RBC 0.000 Nucleated RBC % (auto) 0.0 Microbiology Microbiology Results: Microbiology 12/30/21 21:28 Urine Culture - Final Urine clean catch - Urine juarez top Klebsiella pneumoniae 12/30/21 22:51 Blood Culture - Preliminary Blood - Venous No growth after 48 hours. 12/30/21 22:51 Blood Culture - Preliminary Blood - Venous No growth after 48 hours. Assessment and Plan (1) Encephalopathy: Status: Acute (2) Slurred speech: Status: Acute (3) Urinary incontinence: Status: Acute (4) Acute UTI: Status: Acute Plan 81-year-old male who presents to the hospital after arriving from [place] 2 days ago, with a reported history of CAD status post CABG, CHF, HTN, and history of CVA presents to the hospital with urinary incontinence # urinary tract infection/ urinary incontinence likely related to UTI - MRI brain showed no acute abnormality - on IV ceftriaxone day 4 urine culture grew Klebsiella pneumoniae sensitive to ceftriaxone, blood cultures x2 negative WBC elevated likely due to IV steroids received 2 days ago, trending down, no fever Will transition to by mouth antibiotic for total 10 days # Acute episode of respiratory distress, with tachypnea, fever, bilateral rhonchi question related to aspiration, soon after MRI, patient did not receive contrast chest x-ray unremarkable, no recurrence of symptoms, finger oximetry 95 on room air, patient initially treated with IV steroids, Benadryl, updraft treatment and IV Zosyn Seen by speech therapy they recommended ground mechanical altered diet, nectar thick, all medications crushed, will change Ecotrin to regular aspirin, w ill request speech to reassess patient. # slurred speech/ prolonged phase of mastication no acute CVA, chronic lower extremity weakness due to prior CVA, MRI showed chronic lacunar infarction and chronic Advance microangiopathy being followed by speech therapy diet modified PT recommend short-term rehab, patient has no insurance recently moved from [place] 2 days prior to admission, will request PT to re-evaluated since patient noted to have improved strength lower extremity # acute toxic encephalopathy resolved was likely due to UTI # hypertension - stable - continue amlodipine/ vasotec and follow BP # history of CABG - continue home medications aspirin, Plavix, Coreg, enalapril and statin , outpatient follow-up with PCP and Cardiology # CHF unspecified echo not available - no exacerbation, continue home Lasix DVT prophylaxis:? Lovenox patient will need continued inpatient hospitalization due to UTI , and need safe discharge social media editor arranging for rehab bed Quality Stroke Does the patient have a stroke diagnosis?: No VTE Prior VTE?: No VTE Risk Level:: Medical - moderate - high VTE Device Contraindication: Treatment Not Indicated VTE Drug Contraindication: N/A - Med Ordered
--- NOTE | 2022-01-02 13:38 | MHC.CM.PN ---
Per MD, MD will ask RN to provide teaching for Patient's daily B12 injection; MD is aware [facility] can not start until 01/04/22.
[2022-01-02] MEDS: Aspirin 81 MG TAB.CHEW PO (14:37)
[2022-01-02] MEDS: Enoxaparin Sodium 40 MG/0.4 ML SYRINGE SUBCUT (20:09)
[2022-01-02] MEDS: Gabapentin 100 MG CAPSULE PO (20:09)
[2022-01-03 03:42] VITALS: BP 167/72; PULSE 78; RESP 20; TEMP 36.9; O2SAT 98
[2022-01-03] MEDS: Doxazosin Mesylate 2 MG TABLET 4 MG PO (07:41)
[2022-01-03] MEDS: Enalapril Maleate 10 MG TABLET 20 MG PO (07:41)
[2022-01-03] MEDS: Clopidogrel Bisulfate 75 MG TABLET PO (07:41)
[2022-01-03] MEDS: Aspirin 81 MG TAB.CHEW PO (07:42)
[2022-01-03] MEDS: carvediloL 12.5 MG TABLET PO (07:42)
[2022-01-03] MEDS: Furosemide 20 MG TABLET PO (07:42)
[2022-01-03] MEDS: amLODIPine Besylate 10 MG TABLET PO (07:42)
[2022-01-03] MEDS: Famotidine 20 MG TABLET PO (07:42)
[2022-01-03 07:46] VITALS: BP 146/69; PULSE 63; RESP 20; TEMP 36.8; O2SAT 96
[2022-01-03] MEDS: 0.9 % Sodium Chloride Flush 3 ML SYRINGE IVFLUSH (07:53)
[2022-01-03 08:18] LABS: MANUAL DIFF FLAG NO
[2022-01-03 08:24] LABS: Basophils Percent Auto 0.2 % (0-2); Eosinophils Absolute Auto 0.1 X10*3/uL (0.0-0.4); Eosinophils Percent Auto 0.5 % (0-4); Hematocrit 39.9 % (42.0-52.0); Hemoglobin 13.1 g/dl (14.0-18.0); Imm Gran Abs Auto 0.05 X10*3/uL (0.00-0.03); Imm Gran Pct Auto 0.5 % (0.0-0.4); Lymphocytes Absolute Auto 1.9 X10*3/uL (1.2-4.9); Lymphocytes Percent Auto 17.5 % (20-40); Mean Corpuscular HGB Conc 32.8 g/dl (31.0-36.0); Mean Corpuscular Hemoglobin 29.6 pg (27.0-33.0); Mean Corpuscular Volume 90.1 fL (80.0-98.0); Mean Platelet Volume 10.7 fL (9.4-12.4); Monocytes Absolute Auto 1.1 X10*3/uL (0.1-1.2); Monocytes Percent Auto 9.5 % (2-11); Neutrophils Absolute Auto 7.9 x10*3/uL (2.0-8.3); Neutrophils Percent Auto 71.8 % (45-73); Platelet Count 122 X10*3/uL (160-400); Red Blood Count 4.43 X10*6/uL (4.60-5.80); Red Cell Distribution Width 12.7 % (11.0-16.0); White Blood Count 11.1 X10*3/uL (4.8-10.8)
[2022-01-03 08:52] LABS: Anion Gap 14 (12-20); Blood Urea Nitrogen 23 mg/dL (9-16); Calcium 8.5 mg/dL (8.4-10.2); Carbon Dioxide 28 mmol/L (22-29); Chloride 106 mmol/L (96-108); Creatinine Clr Calc Pharmacy 76.6; Estimated Glomerular Filt Rate > 60; Glucose Random 92 mg/dL (60-115); Potassium 4.1 mmol/L (3.3-5.1); Sodium 144 mmol/L (135-145)
--- NOTE | 2022-01-03 10:14 | MHC.SL.SWA ---
Speech Pathologist Impression: Risk of Aspiration Due to: Neurological Condition Dysphasia Diet Status: Recommend continue diet of Ground/Mechanical Altered with [place] Thick Liquids, pills crushed in puree. Liquid Consistency and Strategies for Safe Swallow: Liquid Intake Recommendation: [place] Thick Liquid Intake Strategies: Small Sips No Straws Solid Food Consistency: Dietary Recommendations: Grnd/Mech Altered (NDD2) Additional Modifications to Solid Foods: Recommend liquids by spoon only. Patient may need specific cueing, assistance for ingestion of liquid in this manner. Recommend supervision at all meals, aspiration precautions apply. Oral Medication Intake: Crushed with Puree Please contact the pharmacy regarding appropriate crushable or liquid drug formulations that are available whenever modified delivery is recommended. Compensatory Strategies and Precautions to be Taken for Safe Swallow: Sitting Upright (90 deg) No Straw Liquids from Cup Small Bites and Sips Alternate Liquids/Solids Supervision While Eating and Drinking for Safe Swallow: Intermittent Supervision Foods to Avoid: Avoid mixed consistencies, blend any sauce/gravy well with food. Swallowing Recommended Treatments: Compens. Strategy Educat. Recommendation for Speech: Inpatient Speech Therapy Comment: Patient seen this morning at breakfast to assess toleration of recommended diet and to re-assess swallow for potential upgrade. Patient had consumed most of his meal, was eating apple sauce by pouring it into his mouth from the cup, but managing this well. Patient had straw in liquid cup, stated that he was having no difficulty, observed to take sip, produce timely swallow, then burp. Burping appears to be chronic with use of straw, but no clinical signs of aspiration. Pt was given trial of water by cup sip, produced timely oral phase and swallow trigger, but then coughed on swallow, and repeatedly after. Trial was discontinued due to clinical signs of aspiration. Recommend patient continue on current diet of Ground/Mechanical Altered with [place] Thick Liquids, pills crushed in puree (No change).. Frequency/Duration: Date Range for Service Req: Timeline to reassess: Powertrain Control Systems Engineer Clinican/Clinical Fellow: No Supervisory Statement: I have reviewed and agree with the student/clinical fellow's documentation: N/A Speech Language Pathologist: Keshia Bundy M.A., CCC-ISSUING OPERATOR
--- NOTE | 2022-01-03 10:56 | PM.DS ---
DS: Providers Provider Date of Service: 01/03/22 Date of admission: 12/30/21 23:34 Primary care physician: None Physician Consults: 12/30/21 23:34 Consult to Neurology Routine Consulting Provider: [facility] Reason for consultation: Possible TIA Has provider been notified: No DS: Diagnosis Discharge Diagnosis (1) Encephalopathy: Status: Acute (2) Slurred speech: Status: Acute (3) Urinary incontinence: Status: Acute (4) Acute UTI: Status: Acute DS: Summary Hospital Course Hospital Course: # acute complicated cystitis with urinary incontinence - patient was initiated on ceftriaxone at the time of admission. Blood cultures remained negative throughout hospitalization. Urine culture grew Klebsiella pneumoniae and patient was transitioned to oral antibiotics. Patient's incontinence resolved prior to discharge. He will be discharged with a prescription of cefuroxime 250 mg b.i.d., stop date: 01/08/2022. # Acute metabolic encephalopathy in the setting of above - resolved at the time of discharge and patient is mentating closer to baseline. ? # slurred speech/ prolonged phase of mastication ?? 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 ?- Was followed by speech therapy who recommends ground/mechanical diet altered with nectar thick liquids, pills crushed in puree. ? ?- Was evaluated by PT recommended home discharge with outpatient therapy and a rolling walker. # hypertension - stable on home antihypertensives # history of CABG - continue home medications?aspirin, Plavix, Coreg, enalapril?and statin , outpatient follow-up with PCP and Cardiology # CHF? unspecified echo not available - no exacerbation, continue home Lasix Status at Discharge Functional status at discharge: uses cane/walker Overall status at discharge: patient is back to baseline Time Spent with Patient Time attestation: Total time spent providing and/or coordinating discharge services: Discharge coordination time: Greater than 30 minutes Quality: Safe Use of Opioids Does Pt have an Active Cancer Diagnosis on the Problem List?: No Quality: Stroke Does the patient have a stroke diagnosis?: Yes Reason for No Anti-thrombotic at DC: N/A - Med Ordered Reason for No Anticoagulant at DC: Drug treatment not indicated Reason Not Initiating IV-Tpa: Drug treatment not indicated Reason for No Anti-thrombotic by Day Two: N/A - Med Ordered Reason for No Statin at DC: N/A - Med Ordered Physical Exam Vital Signs: Vital Signs: Last Vital Signs Temp 98.3 F 01/03/22 07:46 Pulse 63 01/03/22 07:46 Resp 20 01/03/22 07:46 BP 146/69 H 01/03/22 07:46 Pulse Ox 96 01/03/22 07:46 O2 Del Method 01/03/22 07:46 O2 Flow Rate 2 01/01/22 07:20 BMI result Body Mass Index 28.5 Elderly male patient sitting up in chair in no distress Neck no JVD. CVS? regular rate rhythm, S1-S2 heard Respiratory lungs clear to auscultation,? no wheeze, no use of accessory muscles Gastrointestinal abdomen soft,? distended,nontender, bowel sounds audible,no guarding , no rigidity. Extremities noedema. Neuro . 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, no pronator drift,speech thick no change in neuro exam, good bilateral LE strength Skin no rash psych appropriate affect DS: Data Data Completed and Pending Labs on day of discharge: Laboratory Results - last 24 hr 01/03/22 01/03/22 08:08 08:08 WBC 11.1 H RBC 4.43 L Hgb 13.1 L Hct 39.9 L MCV 90.1 MCH 29.6 MCHC 32.8 RDW 12.7 Plt Count 122 L MPV 10.7 Immature Gran % (Auto) 0.5 H Neut % (Auto) 71.8 Lymph % (Auto) 17.5 L Hart % (Auto) 9.5 Eos % (Auto) 0.5 Baso % (Auto) 0.2 Lymph # (Auto) 1.9 Hart # (Auto) 1.1 Eos # (Auto) 0.1 Baso # (Auto) 0.0 Abs Immat Gran (auto) 0.05 H Absolute Neuts (auto) 7.9 Absolute Nucleated RBC 0.000 Nucleated RBC % (auto) 0.0 Sodium 144 Potassium 4.1 Chloride 106 Carbon Dioxide 28 Anion Gap 14 BUN 23 H Creatinine 0.92 Estim Creat Clear Calc 76.6 Estimated GFR > 60 Random Glucose 92 D Calcium 8.5 Preliminary micro results at discharge 12/30/21 22:51 Blood Culture - Preliminary Blood - Venous No growth after 48 hours. 12/30/21 22:51 Blood Culture - Preliminary Blood - Venous No growth after 48 hours. Imaging MRI - head: Radiologist's impression: ITS Impressions Head/Neck CTA 12/30/21 22:06 IMPRESSION: 1. No acute intracranial abnormality including hemorrhage, mass effect, hydrocephalus, or acute territorial edematous infarction. 2. No arterial high grade stenosis or large vessel occlusion in the head or neck. Of note, evaluation of the proximal vessels or neck is somewhat limited due to motion, most notably the origins of the vertebral arteries which are not visualized. 3. Moderate chronic microangiopathy and chronic lacunar infarcts involving the right basal ganglia and left thalamus. 4. Opacification of the right mastoid air cells and right middle ear cavity. Correlate clinically for otomastoiditis. Chest X-Ray 12/30/21 22:39 IMPRESSION: No acute abnormality of the chest. Brain MRI 12/31/21 11:50 IMPRESSION: - Study is limited by motion artifact. No definite acute intracranial findings. No acute infarcts accounting for artifact. - Fairly extensive T2 signal changes within the supratentorial white matter, possibly advanced chronic microangiopathy though nonspecific. - Etat crible appearance of the basal ganglia bilaterally as the sequela of chronic hypertension. There are also chronic lacunar infarcts within the deep juarez nuclei bilaterally. - There is a large right mastoid effusion. Chest X-Ray 12/31/21 13:14 IMPRESSION: Low lung volumes. No definite pneumonia seen. Discharge Plan Discharge Patient Disposition: Home, Self-Care Referrals: Physician,None [Primary Care Provider] - 1 Week Discharge Medications: New cefuroxime axetil 250 mg Tablet 250 mg PO Q12H Qty: 11 0RF Continued enalapril maleate 20 mg Tablet 20 mg PO BID clopidogrel 75 mg Tablet 75 mg PO DAILY amlodipine 10 mg Tablet 10 mg PO DAILY furosemide 20 mg Tablet 20 mg PO DAILY pravastatin 40 mg PO 1XD carvedilol 12.5 mg Tablet 12.5 mg PO BID Rx Instructions: must administer with a meal/food famotidine 20 mg Tablet 20 mg PO DAILY doxazosin 4 mg Tablet 4 mg PO DAILY aspirin 81 mg Tablet,Delayed Release (Dr/Ec) 81 mg PO DAILY gabapentin 100 mg Capsule 100 mg PO BEDTIME Discharge Orders: Discharge Order (Routine); Ordered 01/03/22 Ordered By: Pankaj Quintana Diet: Ground/Mechanical Altered Activity on Discharge: As tolerated Stand Alone Forms: Patient Portal Discharge page Care Plan Goals: Complete oral antibiotic course Plan for outpatient PT Health Concerns: Previous CVA CHF Plan of Treatment: -Cefuroxime 250mg BID until 01/08/2022 Assessment: See discharge summary
[2022-01-03] MEDS: Pravastatin Sodium 40 MG TABLET PO (11:25)
[2022-01-03 11:39] VITALS: BP 126/65; PULSE 63; RESP 20; TEMP 34.8; O2SAT 97
--- NOTE | 2022-01-03 14:01 | MHC.CM.PN ---
Patient is discharged to home today with family support/ Financial services is working with the family to obtain insurance coverage. [facility] PCP list was provided. No services ordered. Patient strength has improved daily. No services ordered.
--- NOTE | 2022-01-03 14:45 | MHC.SL.SWA ---
Addendum entered and electronically signed by Gisele Ann MA, CCC-CAR BODY DESIGNER 01/03/22 17:17: D.S. Original Note: Risk of Aspiration Due to: Neurological Condition Dysphasia Diet Status: UPGRADE solids Liquid Consistency and Strategies for Safe Swallow: Liquid Intake Recommendation: [place] Thick Liquid Intake Strategies: Small Sips No Straws Solid Food Consistency: Dietary Recommendations: Chopped/Advanced (NDD3) Additional Modifications to Solid Foods: Recommend food be cut into small dime sized bites, foods moistened in sauces and gravies. Avoid mixed consistencies, sticky, tough to chew foods. Oral Medication Intake: Crushed with Puree Please contact the pharmacy regarding appropriate crushable or liquid drug formulations that are available whenever modified delivery is recommended. Compensatory Strategies and Precautions to be Taken for Safe Swallow: Sitting Upright (90 deg) Double Swallow No Straw Liquids from Cup Small Bites and Sips Alternate Liquids/Solids Supervision While Eating and Drinking for Safe Swallow: Intermittent Supervision Foods to Avoid: Avoid mixed consistencies, sticky, tough to chew foods. Swallowing Recommended Treatments: Compens. Strategy Educat. Recommendation for Speech: Inpatient Speech Therapy Outpatient Speech Therapy Comment: Patient presents with oropharyngeal dysphagia with a unilateral L oral weakness. Pt was observed to have consistent behavioral characteristic of opening mouth and say ah with a mild throat clear throughout PO trials. Pt had dentures in during PO trials. Recommend UPGRADE diet to CHOPPED/ADVANCED (NDD3) with [place] Thick liquids by spoon only, Pills Crushed in Puree. Recommendations communicated to RN on floor. Message sent to RN, , RD via [employer]. Additional note: Patient presents with a moderate to severe dysarthria, daughter reports this has persisted since patient had stroke in 2004. Daughter present during PO trials with CAR BODY DESIGNER today. CAR BODY DESIGNER provided education to pt and family regarding recommended consistencies and swallow strategies (liquid wash, double swallow). Daughter reported that swallowing pills has been a problem prior to hospitalization. D/t family concern and mention, CAR BODY DESIGNER informed pt and daughter about Modified Barium Swallow. Recommended test if difficulties swallowing pills persist or get worse. Bench Mover Clinican/Clinical Fellow: Yes: Gail Bui M.A., -CAR BODY DESIGNER Supervisory Statement: I have reviewed and agree with the student/clinical fellow's documentation: N/A Speech Language Pathologist: Keshia Bundy M.A., [facility]-CAR BODY DESIGNER
== END 2022-01-03 16:30 | disposition home or self-care (01) ==
LOC: HO.ED 23:03 → HO.EDOVER 23:53 → HO.IMC 12-31 03:57
PROVIDERS: Emergency Medicine; Hospitalist; Admitting Provider Internal Medicine; Emergency Provider Student in an Organized Health Care Education/Training Program; Visit Provider Student in an Organized Health Care Education/Training Program
DX: G93.40 Encephalopathy, unspecified (principal); R32 Unspecified urinary incontinence; N39.0 Urinary tract infection, site not specified; R13.10 Dysphagia, unspecified; R06.02 Shortness of breath; R47.81 Slurred speech; M54.2 Cervicalgia; R26.81 Unsteadiness on feet; R06.03 Acute respiratory distress; I25.10 Atherosclerotic heart disease of native coronary artery without angina pectoris; I10 Essential (primary) hypertension; Z20.822 Contact with and (suspected) exposure to COVID-19; Z79.899 Other long term (current) drug therapy; Z86.73 Personal history of transient ischemic attack (TIA), and cerebral infarction without residual deficits
CPT/HCPCS: 36415; 51702; 70496; 70498; 70551; 71045; 80048; 80076; 80307; 81001; 82077; 82947; 83605; 83690; 83735; 83880; 84484; 85025; 85027; 85610; 87040; 87086; 87088; 87186; 87635; 92526; 92610; 93005; 94640; 96372; 96374; 96375; 96376; 97116; 97162; 99219; 99285; J0696; J1200; J1650; J1940; J2543; J2930; Q9967

== ENCOUNTER 2022-01-24 01:26 | Emergency (ER) | payer MEDICARE, MEDICAID, SELFPAY ==
--- NOTE | ~2022-01-24 | CT_ITS ---
EXAMINATION: CT ABDOMEN AND PELVIS WITHOUT CONTRAST CLINICAL INFORMATION: Flank pain and hematuria. COMPARISON: None TECHNIQUE: Multidetector volumetric imaging was performed from the superior aspect of the liver through the pubic symphysis. Sagittal and coronal reformatted images were obtained on the technologist's workstation. This CT examination was performed using dose optimization techniques as appropriate, variously including the following: *Automated exposure control *Adjustment of mA and/or kV according to patient size (this includes techniques or standardized protocols for targeted exams where dose is matched to indication/reason for exam; i.e. extremities or head) *Use of iterative reconstruction technique DLP: 620 mGy-cm FINDINGS: LUNG BASES: The visualized lung bases are unremarkable. LIVER, GALLBLADDER, AND BILIARY TREE: The liver is normal in size, shape, and attenuation. No focal hepatic lesion or biliary ductal dilatation is present. Cholecystectomy. PANCREAS: Unremarkable. SPLEEN: Unremarkable. ADRENAL GLANDS: Unremarkable. KIDNEYS AND URETERS: The kidneys are normal in size, shape, and attenuation. Subcentimeter cyst in the upper pole of left kidney appear simple. No follow-up required. No hydronephrosis, hydroureter, or calculi seen. Mild bilateral nonspecific perinephric fat stranding. BLADDER: Mildly thick-walled with perivesicular fat stranding. Questionable soft tissue versus debris along the right posterolateral bladder (see tsai image) GASTROINTESTINAL TRACT: Scattered left colonic diverticula. No evidence of diverticulitis. Normal appendix. Small sliding-type hiatal hernia. Stomach otherwise unremarkable. Normal small bowel. ABDOMINAL WALL: No significant hernia is appreciated. LYMPH NODES: Normal. VASCULAR: Aorta is atherosclerotic but normal caliber. PELVIC VISCERA: Mild fat stranding about the prostate. OSSEOUS STRUCTURES: No acute or suspicious osseous abnormalities. Severe lumbar spondylosis. CT/CT abdomen pelvis wo IV con IMPRESSION: * Mild bladder wall thickening and perivesicular fat stranding as can be seen with cystitis. * Mild periprostatic fat stranding may relate to bladder inflammation, or potentially representing concurrent prostatitis. * No urinary calculi. * Scattered left colonic diverticula without evidence of diverticulitis.
[2022-01-24 01:37] VITALS: BP 140/90; PULSE 76; O2SAT 98
[2022-01-24 01:43] VITALS: BP 140/81; PULSE 70; RESP 16; TEMP 36.7; O2SAT 98; BMI 32.1
--- NOTE | 2022-01-24 01:57 | ED_ITS ---
HPI - Male Genitourinary General Chief complaint: Urogenital-Male Stated complaint: pain and blood in urine Time Seen by Provider: 01/24/22 01:57 Source: patient Mode of arrival: ambulatory Limitations: no limitations History of Present Illness HPI Narrative: Patient 81 years old Armenian-speaking male with history of hypertension coronary disease status post CABG, CHF recent admission on 12/30 for acute UTI with metabolic encephalopathy urine culture grew Klebsiella pneumonia treated with cephalosporin until 01/08 patient was feeling better for last 3 days noticed discomfort in suprapubic area with hematuria no fever no chills Related Data Home Medications Medication Instructions Recorded Confirmed amlodipine 10 mg tablet 10 mg PO DAILY 12/30/21 12/30/21 carvedilol 12.5 mg tablet 12.5 mg PO BID 12/30/21 12/30/21 clopidogrel 75 mg tablet 75 mg PO DAILY 12/30/21 12/30/21 doxazosin 4 mg tablet 4 mg PO DAILY 12/30/21 12/30/21 enalapril maleate 20 mg tablet 20 mg PO BID 12/30/21 12/30/21 famotidine 20 mg tablet 20 mg PO DAILY 12/30/21 12/30/21 furosemide 20 mg tablet 20 mg PO DAILY 12/30/21 12/30/21 pravastatin 40 mg PO 1XD 12/30/21 12/30/21 aspirin 81 mg tablet,delayed 81 mg PO DAILY 12/31/21 12/31/21 release gabapentin 100 mg capsule 100 mg PO BEDTIME 12/31/21 12/31/21 Previous Rx's Medication Instructions Recorded cefuroxime axetil 250 mg tablet 250 mg PO Q12H #11 tabs 01/03/22 ciprofloxacin HCl 500 mg tablet 500 mg PO BID #20 tabs 01/24/22 Allergies Allergy/AdvReac Type Severity Reaction Status Date / Time No Known Allergies Allergy Verified 12/30/21 20:44 Review of Systems Review of Systems: Yes all other systems are reviewed and are negative [facility] Past Medical History Medical History Acute CVA (cerebrovascular accident) CAD (coronary artery disease) CHF (congestive heart failure) CVA (cerebral vascular accident) Hypertension Surgical History H/O hernia repair History of appendectomy Hx of CABG Family History Family History Other No family history of cerebrovascular accident (CVA) Social History Social History Household Members: Family Household Members Other:: son and daughter. Housing: House Do you presently have visiting nurse or other home services: No Alcohol intake: never Patient Tobacco Use Status: Former Tobacco user Advance Directives: No Advance Directives Information Provided: No service: No Current occupational status: unemployed Physical Exam Vital Signs: Vital Signs: Last Vital Signs Temp 98.1 F 01/24/22 01:43 Pulse 70 01/24/22 04:54 Resp 18 01/24/22 04:54 BP 128/64 01/24/22 04:54 Pulse Ox 98 01/24/22 04:54 O2 Del Method 01/24/22 04:54 BMI result Body Mass Index 32.1 Appearance: Alert. Oriented X3. No acute distress. Eyes: No pallor or icterus ENT: Pharynx normal. Oral Mucosa moist Neck: Normal inspection. Neck supple. CVS: Normal heart rate and rhythm. Pulses normal. Respiratory: No respiratory distress. Equal air entry bilateral, no wheezing/rales/rhonchi Abdomen: Soft mild suprapubic tenderness Bowel sounds are present, no mass palpable, no CVA tenderness Rectal: Normal tone prostate nontender slightly enlarged Skin: Skin warm and dry. Normal skin color. Normal skin turgor. Extremities: No lower extremity edema. No calf tenderness Neuro: Oriented X 3. No motor deficit. MDM - Male Genitourinary MDM Narrative Medical decision making narrative: Patient with acute cystitis with hematuria CT scan negative for any obstructive lesion. Will discharge patient home on Cipro rectal exam negative for prostatitis Medical Records Attestation: I reviewed the patient's medical records. Lab Data Attestation: I reviewed the patient's lab results. Result diagrams: 01/24/22 03:06 01/24/22 04:30 Labs: Lab Results 01/24/22 01/24/22 01/24/22 Range/Units 01:46 03:06 03:06 WBC 9.5 (4.8-10.8) X10*3/uL RBC 4.06 L (4.60-5.80) X10*6/uL Hgb 12.0 L (14.0-18.0) g/dl Hct 36.7 L (42.0-52.0) % MCV 90.4 (80.0-98.0) fL MCH 29.6 (27.0-33.0) pg MCHC 32.7 (31.0-36.0) g/dl RDW 12.8 (11.0-16.0) % Plt Count 212 D (160-400) X10*3/uL MPV 10.3 (9.4-12.4) fL Immature Gran % (Auto) 0.3 (0.0-0.4) % Neut % (Auto) 73.1 H (45-73) % Lymph % (Auto) 14.4 L (20-40) % [place] % (Auto) 9.5 (2-11) % Eos % (Auto) 2.4 (0-4) % Baso % (Auto) 0.3 (0-2) % Lymph # (Auto) 1.4 (1.2-4.9) X10*3/uL [place] # (Auto) 0.9 (0.1-1.2) X10*3/uL Eos # (Auto) 0.2 (0.0-0.4) X10*3/uL Baso # (Auto) 0.0 (0.0-0.2) X10*3/uL Abs Immat Gran (auto) 0.03 (0.00-0.03) X10*3/uL Absolute Neuts (auto) 7.0 (2.0-8.3) x10*3/uL Absolute Nucleated RBC 0.000 (0.0-0.012) X10*3/uL Nucleated RBC % (auto) 0.0 (0.0-0.2) /100WBC Sodium (135-145) mmol/L Potassium (3.3-5.1) mmol/L Chloride (96-108) mmol/L Carbon Dioxide (22-29) mmol/L Anion Gap (12-20) BUN (9-16) mg/dL Creatinine (0.5-1.4) mg/dL Estim Creat Clear Calc Estimated GFR Random Glucose (60-115) mg/dL Lactic Acid 1.1 (0.5-2.0) mmol/L Calcium (8.4-10.2) mg/dL Total Bilirubin (0.0-1.0) mg/dL AST (5-37) U/L ALT (0-40) U/L Alkaline Phosphatase (39-117) U/L Total Protein (6.5-8.0) g/dL Albumin (3.5-5.0) g/dL Urine Color RED Urine Appearance Cloudy Urine pH 7.0 (5.0-9.0) Ur Specific [place] 1.025 (1.005-1.025) Urine Protein 300 (3+) H (Neg-Trace) mg/dL Urine Glucose (UA) Negative (Negative) mg/dL Urine Ketones Negative (Negative) mg/dL Urine Blood Large (3+) H (Negative) Urine Nitrite Negative (Negative) Ur Leukocyte Esterase Moderate (2+) H (Negative) Urine RBC >20 H (0-2) /HPF Urine WBC 21-50 (0-5) /HPF Urine WBC Clumps Present Ur Squamous Epith Cells 0-2 (0-2) /HPF Urine Bacteria 1+ (None Seen) Hyaline Casts 0-2 (0-2) /LPF 01/24/22 01/24/22 Range/Units 03:28 04:30 WBC (4.8-10.8) X10*3/uL RBC (4.60-5.80) X10*6/uL Hgb (14.0-18.0) g/dl Hct (42.0-52.0) % MCV (80.0-98.0) fL MCH (27.0-33.0) pg MCHC (31.0-36.0) g/dl RDW (11.0-16.0) % Plt Count (160-400) X10*3/uL MPV (9.4-12.4) fL Immature Gran % (Auto) (0.0-0.4) % Neut % (Auto) (45-73) % Lymph % (Auto) (20-40) % [place] % (Auto) (2-11) % Eos % (Auto) (0-4) % Baso % (Auto) (0-2) % Lymph # (Auto) (1.2-4.9) X10*3/uL [place] # (Auto) (0.1-1.2) X10*3/uL Eos # (Auto) (0.0-0.4) X10*3/uL Baso # (Auto) (0.0-0.2) X10*3/uL Abs Immat Gran (auto) (0.00-0.03) X10*3/uL Absolute Neuts (auto) (2.0-8.3) x10*3/uL Absolute Nucleated RBC (0.0-0.012) X10*3/uL Nucleated RBC % (auto) (0.0-0.2) /100WBC Sodium 143 141 (135-145) mmol/L Potassium 2.8 L D 4.3 D (3.3-5.1) mmol/L Chloride 118 H 109 H (96-108) mmol/L Carbon Dioxide 17 L 22 (22-29) mmol/L Anion Gap 11 L 14 (12-20) BUN 9 D 11 (9-16) mg/dL Creatinine 0.61 0.83 (0.5-1.4) mg/dL Estim Creat Clear Calc 111.9 82.3 Estimated GFR > 60 > 60 Random Glucose 73 98 (60-115) mg/dL Lactic Acid (0.5-2.0) mmol/L Calcium 5.7 L* D 8.3 L D (8.4-10.2) mg/dL Total Bilirubin 0.5 0.4 (0.0-1.0) mg/dL AST 13 D 22 D (5-37) U/L ALT 9 13 (0-40) U/L Alkaline Phosphatase 45 D 64 D (39-117) U/L Total Protein 4.1 L D 6.0 L D (6.5-8.0) g/dL Albumin 2.4 L D 3.4 L D (3.5-5.0) g/dL Urine Color Urine Appearance Urine pH (5.0-9.0) Ur Specific [place] (1.005-1.025) Urine Protein (Neg-Trace) mg/dL Urine Glucose (UA) (Negative) mg/dL Urine Ketones (Negative) mg/dL Urine Blood (Negative) Urine Nitrite (Negative) Ur Leukocyte Esterase (Negative) Urine RBC (0-2) /HPF Urine WBC (0-5) /HPF Urine WBC Clumps Ur Squamous Epith Cells (0-2) /HPF Urine Bacteria (None Seen) Hyaline Casts (0-2) /LPF Discharge Plan Discharge Clinical Impression: Acute cystitis with hematuria Patient Disposition: Home, Self-Care Instructions: Urinary Tract Infection in Men (ED) Additional Instructions: Drink plenty of fluid Take antibiotic as prescribed Follow with PCP if not better [place] el antibi?heather seg?n lo prescrito Siga con PCP si no mejor Prescriptions: New ciprofloxacin HCl 500 mg tablet 500 mg PO BID Qty: 20 0RF No Action enalapril maleate 20 mg Tablet 20 mg PO BID clopidogrel 75 mg Tablet 75 mg PO DAILY amlodipine 10 mg Tablet 10 mg PO DAILY furosemide 20 mg Tablet 20 mg PO DAILY pravastatin 40 mg PO 1XD carvedilol 12.5 mg Tablet 12.5 mg PO BID Rx Instructions: must administer with a meal/food famotidine 20 mg Tablet 20 mg PO DAILY doxazosin 4 mg Tablet 4 mg PO DAILY aspirin 81 mg Tablet,Delayed Release (Dr/Ec) 81 mg PO DAILY gabapentin 100 mg Capsule 100 mg PO BEDTIME cefuroxime axetil 250 mg Tablet 250 mg PO Q12H Qty: 11 0RF Print Language: Armenian
[2022-01-24 02:17] LABS: Appearance Urine Cloudy; Glucose Urine UA Negative (Negative); Leukocyte Esterase Urine Moderate (2+) (Negative); Nitrite Urine Negative (Negative); Specific Gravity - Urine 1.025 (1.005-1.025); UMIC TRIGGER UACC YES; Urine Blood Large (3+) (Negative); Urine Ketones Negative (Negative); Urine Protein 300 (3+) mg/dL (Neg-Trace)
[2022-01-24 02:19] LABS: Bacteria Urine 1+ (None Seen); Color Urine RED; Hyaline Casts Urine 0-2 /LPF (0-2); RBC Urine >20 /HPF (0-2); Squamous Epithelial Cell Urine 0-2 /HPF (0-2); UACC Culture Trigger YES; WBC Clumps Urine Present; WBC Urine 21-50 /HPF (0-5)
--- NOTE | 2022-01-24 02:32 | PC.NURSE ---
pt a&ox3, vss, urine sample obtained - bloody urine, pain w urination, no new orders at this time. pt pending ED provider.
[2022-01-24] MEDS: 0.9 % Sodium Chloride 1,000 ML 999 ML IV ×2 (03:09→04:12)
[2022-01-24 03:11] LABS: MANUAL DIFF FLAG NO
[2022-01-24 03:13] LABS: Basophils Percent Auto 0.3 % (0-2); Eosinophils Absolute Auto 0.2 X10*3/uL (0.0-0.4); Eosinophils Percent Auto 2.4 % (0-4); Hematocrit 36.7 % (42.0-52.0); Imm Gran Abs Auto 0.03 X10*3/uL (0.00-0.03); Imm Gran Pct Auto 0.3 % (0.0-0.4); Lymphocytes Absolute Auto 1.4 X10*3/uL (1.2-4.9); Lymphocytes Percent Auto 14.4 % (20-40); Mean Corpuscular HGB Conc 32.7 g/dl (31.0-36.0); Mean Corpuscular Hemoglobin 29.6 pg (27.0-33.0); Mean Corpuscular Volume 90.4 fL (80.0-98.0); Mean Platelet Volume 10.3 fL (9.4-12.4); Monocytes Absolute Auto 0.9 X10*3/uL (0.1-1.2); Monocytes Percent Auto 9.5 % (2-11); Neutrophils Percent Auto 73.1 % (45-73); Platelet Count 212 X10*3/uL (160-400); Red Blood Count 4.06 X10*6/uL (4.60-5.80); Red Cell Distribution Width 12.8 % (11.0-16.0); White Blood Count 9.5 X10*3/uL (4.8-10.8)
[2022-01-24 03:27] LABS: Lactic Acid 1.1 mmol/L (0.5-2.0)
[2022-01-24] MEDS: cefTRIAXone sodium 1 GM in 0.9 % Sodium Chloride 50 ML IV (03:27)
--- NOTE | 2022-01-24 03:34 | PC.NURSE ---
Addendum entered by Justine Fajardo 01/24/22 03:46: Per provider, no blood cultures needed prior to abx. Original Note: 20G IV placed left wrist, first L NaCl running, medicated per provider order, per provider order, no new orders at this time.
[2022-01-24 04:21] LABS: Alanine Aminotransferase 9 U/L (0-40); Albumin Level 2.4 g/dL (3.5-5.0); Alkaline Phosphatase 45 U/L (39-117); Anion Gap 11 (12-20); Aspartate Amino Transferase 13 U/L (5-37); Bilirubin Total 0.5 mg/dL (0.0-1.0); Blood Urea Nitrogen 9 mg/dL (9-16); Calcium 5.7 mg/dL (8.4-10.2); Carbon Dioxide 17 mmol/L (22-29); Chloride 118 mmol/L (96-108); Creatinine Clr Calc Pharmacy 111.9; Estimated Glomerular Filt Rate > 60; Glucose Random 73 mg/dL (60-115); Potassium 2.8 mmol/L (3.3-5.1); Sodium 143 mmol/L (135-145); Total Protein 4.1 g/dL (6.5-8.0)
[2022-01-24] MEDS: levoFLOXacin 500 MG TABLET PO (04:27)
[2022-01-24 04:54] VITALS: BP 128/64; PULSE 70; RESP 18; O2SAT 98
[2022-01-24 04:55] LABS: Alanine Aminotransferase 13 U/L (0-40); Albumin Level 3.4 g/dL (3.5-5.0); Alkaline Phosphatase 64 U/L (39-117); Anion Gap 14 (12-20); Aspartate Amino Transferase 22 U/L (5-37); Bilirubin Total 0.4 mg/dL (0.0-1.0); Blood Urea Nitrogen 11 mg/dL (9-16); Calcium 8.3 mg/dL (8.4-10.2); Carbon Dioxide 22 mmol/L (22-29); Chloride 109 mmol/L (96-108); Creatinine Clr Calc Pharmacy 82.3; Estimated Glomerular Filt Rate > 60; Glucose Random 98 mg/dL (60-115); Potassium 4.3 mmol/L (3.3-5.1); Sodium 141 mmol/L (135-145)
[2022-01-24 05:34] VITALS: BP 143/78; PULSE 82; RESP 16; O2SAT 99
== END 2022-01-24 05:35 | disposition home or self-care (01) ==
PROVIDERS: Emergency Provider Internal Medicine
DX: N30.01 Acute cystitis with hematuria (principal); I10 Essential (primary) hypertension; I25.10 Atherosclerotic heart disease of native coronary artery without angina pectoris; Z79.899 Other long term (current) drug therapy; Z87.891 Personal history of nicotine dependence
CPT/HCPCS: 36415; 74176; 80053; 81001; 83605; 85025; 87086; 96361; 96374; 99284; J0696

== ENCOUNTER 2022-02-26 10:41 | Outpatient (REF) | payer MEDICARE, MEDICAID, SELFPAY ==
[2022-02-26 15:01] LABS: Anion Gap 15 (12-20); Blood Urea Nitrogen 11 mg/dL (9-16); Calcium 9.6 mg/dL (8.4-10.2); Carbon Dioxide 28 mmol/L (22-29); Chloride 104 mmol/L (96-108); Estimated Glomerular Filt Rate > 60; Glucose Random 89 mg/dL (60-115); Potassium 3.9 mmol/L (3.3-5.1); Sodium 143 mmol/L (135-145)
== END 2022-02-26 10:42 | disposition home or self-care (01) ==
LOC: HO.WFDLDS 10:41
PROVIDERS: Visit Provider Hospitalist
DX: I50.9 Heart failure, unspecified (principal)
CPT/HCPCS: 36415; 80048

== ENCOUNTER → 2022-03-31 12:14 | Outpatient (BNVA) | payer OTHER, MEDICAID, SELFPAY | PROVIDERS: PCP Hospitalist; Referring Provider Hospitalist; Visit Provider Internal Medicine Cardiovascular Disease | DX: I25.10 Atherosclerotic heart disease of native coronary artery without angina pectoris (principal); I11.0 Hypertensive heart disease with heart failure; I50.9 Heart failure, unspecified; Z79.899 Other long term (current) drug therapy | CPT/HCPCS: 93005; 99202 ==

== ENCOUNTER 2022-04-07 16:42 | Emergency (ER) | payer MEDICARE, MEDICAID, SELFPAY ==
--- NOTE | ~2022-04-07 | XR_ITS ---
EXAMINATION: XR CHEST CLINICAL INFORMATION: Shortness of breath COMPARISON: 12/31/2021 TECHNIQUE: 2 views of the chest were obtained. FINDINGS: Since the prior study, lung expansion has improved. Heart size normal. Again seen are changes of median sternotomy and CABG. No infiltrates, effusions, CHF or lung masses are seen. XR/XR chest 2V IMPRESSION: No acute intrathoracic disease.
--- NOTE | 2022-04-07 16:57 | ED_ITS ---
HPI - General Adult General Chief complaint: General Medical <Alycia Pulido NP - Last Filed: 04/07/22 17:03> Stated complaint: sore throat, abdominal pain <Alycia Pulido NP - Last Filed: 04/07/22 17:03> Time Seen by Provider: 04/07/22 20:15 <Alycia Pulido NP - Last Filed: 04/07/22 17:03> Source: patient, family and sericulturist <Armando Blackman MD - Last Filed: 04/07/22 20:58> Mode of arrival: ambulatory <Armando Blackman MD - Last Filed: 04/07/22 20:58> Limitations: no limitations <Armando Blackman MD - Last Filed: 04/07/22 20:58> History of Present Illness HPI narrative: 81-year-old male walked in for evaluation of sore throat, coughing, increased swelling to both lower extremities and abdominal distension with no SOB or CP. Patient is taking daily furosemide was recently increased from 20 mg to 40 mg patient reportedly go to the bathroom for urination for frequent now, patient is concerned today for upper respiratory infection and increases swelling of bilateral lower extremities. Patient declined abdominal pain, fever, chills, SOB, And recent increase of weight. <Armando Blackman MD - Last Filed: 04/07/22 20:58> Related Data Home medications: Previous Rx's Medication Instructions Recorded amlodipine 10 mg tablet 10 mg PO DAILY #90 tabs 02/26/22 aspirin 81 mg tablet,delayed 81 mg PO DAILY #90 tabs 02/26/22 release carvedilol 12.5 mg tablet 12.5 mg PO BID #90 tabs 02/26/22 clopidogrel 75 mg tablet 75 mg PO DAILY #90 tabs 02/26/22 doxazosin 4 mg tablet 4 mg PO DAILY #90 tabs 02/26/22 enalapril maleate 20 mg tablet 20 mg PO BID #180 tabs 02/26/22 famotidine 20 mg tablet 20 mg PO DAILY #90 tabs 02/26/22 furosemide 20 mg tablet 40 mg PO DAILY #180 tabs 02/26/22 latanoprost 0.005 % eye drops 1 drp ophthalmic (eye) QPM to each 02/26/22 eye #7.5 mL atorvastatin 80 mg tablet 80 mg PO BEDTIME #60 tabs 03/31/22 <Alycia Pulido NP - Last Filed: 04/07/22 17:03> Allergies/adverse reactions: Allergies Allergy/AdvReac Type Severity Reaction Status Date / Time No Known Allergies Allergy Verified 03/31/22 12:21 <Alycia Pulido NP - Last Filed: 04/07/22 17:03> Review of Systems Review of Systems: all other systems are reviewed and are negative Constitutional: Reports as per HPI and Reports no additional constitutional complaints Eyes: Reports as per HPI and Reports no additional eye complaints Reports system reviewed and no additional complaints, except as documented Cardiovascular: Reports as per HPI and Reports no additional cardiovascular complaints Respiratory: Reports as per HPI and Reports no additional respiratory complaints Gastrointestinal: Reports as per HPI and Reports no additional gastrointestinal complaints Genitourinary: Reports no additional female genitourinary complaints Musculoskeletal: Reports no additional musculoskeletal complaints Skin/Breast: Reports system reviewed and no additional complaints, except as docu Psychiatric: Reports no additional psychiatric complaints Endocrine: Reports no additional endocrine complaints Hematologic/Lymphatic: Reports no additional hematologic/lymphatic complaints Allergic/Immunologic: Reports no additional allergic/immunologic complaints Reports system reviewed and no additional complaints, except as documented and Reports Abnormal speech present <Armando Blackman MD - Last Filed: 04/07/22 20:58> [facility] Past Medical History Medical History: Medical History Acute CVA (cerebrovascular accident) CAD (coronary artery disease) CHF (congestive heart failure) CVA (cerebral vascular accident) Hypertension <Alycia Pulido NP - Last Filed: 04/07/22 17:03> Surgical History: Surgical History H/O hernia repair History of appendectomy Hx of CABG <Alycia Pulido NP - Last Filed: 04/07/22 17:03> Family History Family History: Family History Other No family history of cerebrovascular accident (CVA) <Alycia Pulido NP - Last Filed: 04/07/22 17:03> Social History Social History: Social History Household Members: Family Household Members Other:: son and daughter. Housing: House Do you presently have visiting nurse or other home services: No Alcohol intake: never Patient Tobacco Use Status: Former Tobacco user e-Cigarette/Vaping Use: Never Used Advance Directives: No Advance Directives Information Provided: No service: No Current occupational status: unemployed Current occupational exposures/hazards: No <Alycia Pulido NP - Last Filed: 04/07/22 17:03> Physical Exam ED Vital Signs: Vital Signs - 24 hr 04/07/22 17:02 Temperature 98.1 F Pulse Rate 70 Respiratory Rate 16 Blood Pressure 153/71 H Pulse Oximetry 98 Oxygen Delivery Method Room Air BMI result Body Mass Index 35.9 <Alycia Pulido NP - Last Filed: 04/07/22 17:03> Vital Signs - 24 hr 04/07/22 17:02 Temperature 98.1 F Pulse Rate 70 Respiratory Rate 16 Blood Pressure 153/71 H Pulse Oximetry 98 Oxygen Delivery Method Room Air BMI result Body Mass Index 35.9 vital signs have been reviewed as appeared to be correct. Blood pressure normal. Heart rate normal. Respiration rate normal. Temperature normal. Oxygen saturation normal. <Armando Blackman MD - Last Filed: 04/07/22 20:58> Appearance: Alert. Oriented X3. No acute distress. Head: Normal external exam. Normocephalic. Atraumatic. No [place] signs noted. No raccoon eyes noted Eyes: PERRLA. EOMI. Conjunctiva and sclera normal. Eyelids normal. ENT: TM's Normal. Pharynx normal. Uvula midline. Moist mucous membranes. No trismus noted. No drooling noted. No muffled voice noted. Neck: Normal inspection. Neck supple. FROM. No adenopathy. Thyroid Normal. No meningeal signs. No neck mass noted. CVS: Normal heart rate and rhythm. Heart sound normal. No murmurs noted. Pulses normal throughout. Respiratory: No respiratory distress. Painless inspiration. Breath sounds normal. No wheezes/rales/rhonchi noted. Chest nontender. No accessory muscle usage noted or decreased air movement noted. Abdomen: Soft and nontender. Bowel sounds normal in all 4 quadrants. No distention noted. No organomegaly noted. No visible injury noted. Back: No CVA tenderness. Full range of motion noted. Skin: Skin warm and dry. Normal skin color. Normal skin turgor. No rashes/lesions/lacerations noted. Extremities: +2 bilateral lower extremity edema. Extremities exhibit normal range of motion. Extremities nontender. Neuro: Oriented X 3. Cranial nerve exam: II-XII are grossly intact No motor deficit. No sensory deficit. Reflexes normal. <Armando Blackman MD - Last Filed: 04/07/22 20:58> Course Course Course Narrative: This is a rapid medical exam. Deferred additional HPI, ROS, PE to primary provider. 81yo male with history of BPH, glaucoma, CAD, HTN, CHF, HLD here with complaints cough, congestion, SOB, bilateral lower leg swelling, abdominal distention since Thursday. Patient has been 40mg daily of furosemide (increased from 20mg one month ago). +LE swelling on exam/tachypnea and abdominal distention. will need labs, CXR, EKG, COVID screen. VSS. <Alycia Pulido NP - Last Filed: 04/07/22 17:03> This is a rapid medical exam. Deferred additional HPI, ROS, PE to primary provider. 81yo male with history of BPH, glaucoma, CAD, HTN, CHF, HLD here with complaints cough, congestion, SOB, bilateral lower leg swelling, abdominal distention since Thursday. Patient has been 40mg daily of furosemide (increased from 20mg one month ago). +LE swelling on exam will need labs, CXR, EKG, COVID screen. VSS. <Armando Blackman MD - Last Filed: 04/07/22 20:58> Reevaluation(s) Reevaluation #1: bilateral lower extremities edema recently Lasix was increased from 20 mg daily to 40 mg daily patient is urinating normally with normal renal function test patient was instructed to continue with Lasix and restrict to 3 cups of water a day and follow-up with PCP. Chest x-ray / exam/labs not consistent with exacerbation of congestive heart failure. <Armando Blackman MD - Last Filed: 04/07/22 20:58> Time: 20:55 <Armando Blackman MD - Last Filed: 04/07/22 20:58> Medical Decision Making Differential Diagnosis Differential Diagnoses: The differential diagnosis associated with the presentation includes <Armando Blackman MD - Last Filed: 04/07/22 20:58> CHF/ pneumonia/bronchitis/ upper respiratory infection / bilateral lower extremities edema. <Armando Blackman MD - Last Filed: 04/07/22 20:58> Lab Data MDM Lab Attestation statement: I reviewed the patient's lab results. <Armando Blackman MD - Last Filed: 04/07/22 20:58> Result Diagrams: : 04/07/22 17:24 04/07/22 17:24 <Alycia Pulido NP - Last Filed: 04/07/22 17:03> Labs: Lab Results 04/07/22 04/07/22 04/07/22 Range/Units 17:24 17:24 17:24 WBC 5.7 (4.8-10.8) X10*3/uL RBC 4.45 L (4.60-5.80) X10*6/uL Hgb 13.2 L (14.0-18.0) g/dl Hct 40.1 L (42.0-52.0) % MCV 90.1 (80.0-98.0) fL MCH 29.7 (27.0-33.0) pg MCHC 32.9 (31.0-36.0) g/dl RDW 12.7 (11.0-16.0) % Plt Count 158 L D (160-400) X10*3/uL MPV 10.7 (9.4-12.4) fL Immature Gran % (Auto) 0.5 H (0.0-0.4) % Neut % (Auto) 54.5 (45-73) % Lymph % (Auto) 30.9 (20-40) % [place] % (Auto) 9.9 (2-11) % Eos % (Auto) 3.7 (0-4) % Baso % (Auto) 0.5 (0-2) % Lymph # (Auto) 1.8 (1.2-4.9) X10*3/uL [place] # (Auto) 0.6 (0.1-1.2) X10*3/uL Eos # (Auto) 0.2 (0.0-0.4) X10*3/uL Baso # (Auto) 0.0 (0.0-0.2) X10*3/uL Abs Immat Gran (auto) 0.03 (0.00-0.03) X10*3/uL Absolute Neuts (auto) 3.1 (2.0-8.3) x10*3/uL Absolute Nucleated RBC 0.000 (0.0-0.012) X10*3/uL Nucleated RBC % (auto) 0.0 (0.0-0.2) /100WBC PT (10.0-13.1) SEC INR (0.9-1.1) Sodium 142 (135-145) mmol/L Potassium 4.3 (3.3-5.1) mmol/L Chloride 105 (96-108) mmol/L Carbon Dioxide 31 H (22-29) mmol/L Anion Gap 10 L (12-20) BUN 12 (9-16) mg/dL Creatinine 0.94 (0.5-1.4) mg/dL Estim Creat Clear Calc 69.7 Estimated GFR > 60 Random Glucose 86 (60-115) mg/dL Calcium 9.2 (8.4-10.2) mg/dL Magnesium 2.0 (1.6-2.6) mg/dL Total Bilirubin 0.6 (0.0-1.0) mg/dL Direct Bilirubin 0.2 (0.0-0.5) mg/dL AST 22 (5-37) U/L ALT 18 (0-40) U/L Alkaline Phosphatase 82 (39-117) U/L Troponin I High Sens < 3.5 D (<3.5-35.0) ng/L B-Natriuretic Peptide (<100) pg/mL Total Protein 6.9 (6.5-8.0) g/dL Albumin 4.3 (3.5-5.0) g/dL COVID-19 ([facility]) (Negative) COVID-19 Clin Com 04/07/22 04/07/22 04/07/22 Range/Units 17:24 17:24 17:24 WBC (4.8-10.8) X10*3/uL RBC (4.60-5.80) X10*6/uL Hgb (14.0-18.0) g/dl Hct (42.0-52.0) % MCV (80.0-98.0) fL MCH (27.0-33.0) pg MCHC (31.0-36.0) g/dl RDW (11.0-16.0) % Plt Count (160-400) X10*3/uL MPV (9.4-12.4) fL Immature Gran % (Auto) (0.0-0.4) % Neut % (Auto) (45-73) % Lymph % (Auto) (20-40) % [place] % (Auto) (2-11) % Eos % (Auto) (0-4) % Baso % (Auto) (0-2) % Lymph # (Auto) (1.2-4.9) X10*3/uL [place] # (Auto) (0.1-1.2) X10*3/uL Eos # (Auto) (0.0-0.4) X10*3/uL Baso # (Auto) (0.0-0.2) X10*3/uL Abs Immat Gran (auto) (0.00-0.03) X10*3/uL Absolute Neuts (auto) (2.0-8.3) x10*3/uL Absolute Nucleated RBC (0.0-0.012) X10*3/uL Nucleated RBC % (auto) (0.0-0.2) /100WBC PT 12.2 (10.0-13.1) SEC INR 1.1 (0.9-1.1) Sodium (135-145) mmol/L Potassium (3.3-5.1) mmol/L Chloride (96-108) mmol/L Carbon Dioxide (22-29) mmol/L Anion Gap (12-20) BUN (9-16) mg/dL Creatinine (0.5-1.4) mg/dL Estim Creat Clear Calc Estimated GFR Random Glucose (60-115) mg/dL Calcium (8.4-10.2) mg/dL Magnesium (1.6-2.6) mg/dL Total Bilirubin (0.0-1.0) mg/dL Direct Bilirubin (0.0-0.5) mg/dL AST (5-37) U/L ALT (0-40) U/L Alkaline Phosphatase (39-117) U/L Troponin I High Sens (<3.5-35.0) ng/L B-Natriuretic Peptide 90 (<100) pg/mL Total Protein (6.5-8.0) g/dL Albumin (3.5-5.0) g/dL COVID-19 ([facility]) Negative (Negative) COVID-19 Clin Com See Note <Alycia Pulido NP - Last Filed: 04/07/22 17:03> Lab Results 04/07/22 04/07/22 04/07/22 Range/Units 17:24 17:24 17:24 WBC 5.7 (4.8-10.8) X10*3/uL RBC 4.45 L (4.60-5.80) X10*6/uL Hgb 13.2 L (14.0-18.0) g/dl Hct 40.1 L (42.0-52.0) % MCV 90.1 (80.0-98.0) fL MCH 29.7 (27.0-33.0) pg MCHC 32.9 (31.0-36.0) g/dl RDW 12.7 (11.0-16.0) % Plt Count 158 L D (160-400) X10*3/uL MPV 10.7 (9.4-12.4) fL Immature Gran % (Auto) 0.5 H (0.0-0.4) % Neut % (Auto) 54.5 (45-73) % Lymph % (Auto) 30.9 (20-40) % [place] % (Auto) 9.9 (2-11) % Eos % (Auto) 3.7 (0-4) % Baso % (Auto) 0.5 (0-2) % Lymph # (Auto) 1.8 (1.2-4.9) X10*3/uL [place] # (Auto) 0.6 (0.1-1.2) X10*3/uL Eos # (Auto) 0.2 (0.0-0.4) X10*3/uL Baso # (Auto) 0.0 (0.0-0.2) X10*3/uL Abs Immat Gran (auto) 0.03 (0.00-0.03) X10*3/uL Absolute Neuts (auto) 3.1 (2.0-8.3) x10*3/uL Absolute Nucleated RBC 0.000 (0.0-0.012) X10*3/uL Nucleated RBC % (auto) 0.0 (0.0-0.2) /100WBC PT (10.0-13.1) SEC INR (0.9-1.1) Sodium 142 (135-145) mmol/L Potassium 4.3 (3.3-5.1) mmol/L Chloride 105 (96-108) mmol/L Carbon Dioxide 31 H (22-29) mmol/L Anion Gap 10 L (12-20) BUN 12 (9-16) mg/dL Creatinine 0.94 (0.5-1.4) mg/dL Estim Creat Clear Calc 69.7 Estimated GFR > 60 Random Glucose 86 (60-115) mg/dL Calcium 9.2 (8.4-10.2) mg/dL Magnesium 2.0 (1.6-2.6) mg/dL Total Bilirubin 0.6 (0.0-1.0) mg/dL Direct Bilirubin 0.2 (0.0-0.5) mg/dL AST 22 (5-37) U/L ALT 18 (0-40) U/L Alkaline Phosphatase 82 (39-117) U/L Troponin I High Sens < 3.5 D (<3.5-35.0) ng/L B-Natriuretic Peptide (<100) pg/mL Total Protein 6.9 (6.5-8.0) g/dL Albumin 4.3 (3.5-5.0) g/dL COVID-19 ([facility]) (Negative) COVID-19 Clin Com 04/07/22 04/07/22 04/07/22 Range/Units 17:24 17:24 17:24 WBC (4.8-10.8) X10*3/uL RBC (4.60-5.80) X10*6/uL Hgb (14.0-18.0) g/dl Hct (42.0-52.0) % MCV (80.0-98.0) fL MCH (27.0-33.0) pg MCHC (31.0-36.0) g/dl RDW (11.0-16.0) % Plt Count (160-400) X10*3/uL MPV (9.4-12.4) fL Immature Gran % (Auto) (0.0-0.4) % Neut % (Auto) (45-73) % Lymph % (Auto) (20-40) % [place] % (Auto) (2-11) % Eos % (Auto) (0-4) % Baso % (Auto) (0-2) % Lymph # (Auto) (1.2-4.9) X10*3/uL [place] # (Auto) (0.1-1.2) X10*3/uL Eos # (Auto) (0.0-0.4) X10*3/uL Baso # (Auto) (0.0-0.2) X10*3/uL Abs Immat Gran (auto) (0.00-0.03) X10*3/uL Absolute Neuts (auto) (2.0-8.3) x10*3/uL Absolute Nucleated RBC (0.0-0.012) X10*3/uL Nucleated RBC % (auto) (0.0-0.2) /100WBC PT 12.2 (10.0-13.1) SEC INR 1.1 (0.9-1.1) Sodium (135-145) mmol/L Potassium (3.3-5.1) mmol/L Chloride (96-108) mmol/L Carbon Dioxide (22-29) mmol/L Anion Gap (12-20) BUN (9-16) mg/dL Creatinine (0.5-1.4) mg/dL Estim Creat Clear Calc Estimated GFR Random Glucose (60-115) mg/dL Calcium (8.4-10.2) mg/dL Magnesium (1.6-2.6) mg/dL Total Bilirubin (0.0-1.0) mg/dL Direct Bilirubin (0.0-0.5) mg/dL AST (5-37) U/L ALT (0-40) U/L Alkaline Phosphatase (39-117) U/L Troponin I High Sens (<3.5-35.0) ng/L B-Natriuretic Peptide 90 (<100) pg/mL Total Protein (6.5-8.0) g/dL Albumin (3.5-5.0) g/dL COVID-19 ([facility]) Negative (Negative) COVID-19 Clin Com See Note <Armando Blackman MD - Last Filed: 04/07/22 20:58> Independent Interpretation I performed an independent interpretation of an: Plain X-Ray ( No acute intra thoracic pathology.) <Armando Blackman MD - Last Filed: 04/07/22 20:58> Radiology Impression Discussion of test interpretation with radiology: I have reviewed the radiologist's reading. <Armando Blackman MD - Last Filed: 04/07/22 20:58> Discharge Plan Discharge Clinical Impression: Bilateral lower extremity edema <Alycia Pulido NP - Last Filed: 04/07/22 17:03> Patient Disposition: Home, Self-Care <Alycia Pulido NP - Last Filed: 04/07/22 17:03> Instructions: Leg Edema (ED) <Alycia Pulido NP - Last Filed: 04/07/22 17:03> Prescriptions: No Action aspirin 81 mg tablet,delayed release (DR/EC) 81 mg PO DAILY Qty: 90 3RF carvedilol 12.5 mg tablet 12.5 mg PO BID Qty: 90 1RF Rx Instructions: must administer with a meal/food clopidogrel 75 mg tablet 75 mg PO DAILY Qty: 90 1RF doxazosin 4 mg tablet 4 mg PO DAILY Qty: 90 1RF enalapril maleate 20 mg tablet 20 mg PO BID Qty: 180 1RF famotidine 20 mg tablet 20 mg PO DAILY Qty: 90 1RF furosemide 20 mg tablet 40 mg PO DAILY Qty: 180 1RF Rx Instructions: weight daily and report gain of 3 pounds over 1-3 days, shortness of breath or dizziness amlodipine 10 mg tablet 10 mg PO DAILY Qty: 90 1RF latanoprost 0.005 % drops 1 drp ophthalmic (eye) QPM Qty: 7.5 8RF atorvastatin 80 mg tablet 80 mg PO BEDTIME Qty: 60 4RF <Alycia Pulido NP - Last Filed: 04/07/22 17:03> Referrals: Caitlin Tony, KIARA [Primary Care Provider] - <Alycia Pulido NP - Last Filed: 04/07/22 17:03>
--- NOTE | 2022-04-07 17:01 | ECG_ITS ---
Test Reason : sob Blood Pressure : / mmHG Vent. Rate : 066 BPM Atrial Rate : 066 BPM P-R Int : 196 ms QRS Dur : 092 ms QT Int : 398 ms P-R-T Axes : 033 -32 046 degrees QTc Int : 417 ms Normal sinus rhythm Left axis deviation Possible Anterolateral infarct (cited on or before 30-DEC-2021) Abnormal ECG When compared with ECG of 30-DEC-2021 20:47, No significant change was found Referred By: Alycia Pulido Electronically Signed By:GRIS VIDALES
[2022-04-07 17:02] VITALS: BP 153/71; PULSE 70; RESP 16; TEMP 36.7; O2SAT 98; BMI 35.9
[2022-04-07 17:49] LABS: MANUAL DIFF FLAG NO
[2022-04-07 18:06] LABS: Alanine Aminotransferase 18 U/L (0-40); Albumin Level 4.3 g/dL (3.5-5.0); Alkaline Phosphatase 82 U/L (39-117); Anion Gap 10 (12-20); Aspartate Amino Transferase 22 U/L (5-37); Bilirubin Direct 0.2 mg/dL (0.0-0.5); Bilirubin Total 0.6 mg/dL (0.0-1.0); Blood Urea Nitrogen 12 mg/dL (9-16); COVID-19 Test Negative (Negative); Calcium 9.2 mg/dL (8.4-10.2); Carbon Dioxide 31 mmol/L (22-29); Chloride 105 mmol/L (96-108); Creatinine Clr Calc Pharmacy 69.7; Estimated Glomerular Filt Rate > 60; Glucose Random 86 mg/dL (60-115); IDNOW Serial# 16C4AD1C; Potassium 4.3 mmol/L (3.3-5.1); Sodium 142 mmol/L (135-145); Total Protein 6.9 g/dL (6.5-8.0)
[2022-04-07 18:11] LABS: B Type Natriuretic Peptide 90 pg/mL (<100); Basophils Percent Auto 0.5 % (0-2); Eosinophils Absolute Auto 0.2 X10*3/uL (0.0-0.4); Eosinophils Percent Auto 3.7 % (0-4); Hematocrit 40.1 % (42.0-52.0); Hemoglobin 13.2 g/dl (14.0-18.0); Imm Gran Abs Auto 0.03 X10*3/uL (0.00-0.03); Imm Gran Pct Auto 0.5 % (0.0-0.4); Lymphocytes Absolute Auto 1.8 X10*3/uL (1.2-4.9); Lymphocytes Percent Auto 30.9 % (20-40); Mean Corpuscular HGB Conc 32.9 g/dl (31.0-36.0); Mean Corpuscular Hemoglobin 29.7 pg (27.0-33.0); Mean Corpuscular Volume 90.1 fL (80.0-98.0); Mean Platelet Volume 10.7 fL (9.4-12.4); Monocytes Absolute Auto 0.6 X10*3/uL (0.1-1.2); Monocytes Percent Auto 9.9 % (2-11); Neutrophils Absolute Auto 3.1 x10*3/uL (2.0-8.3); Neutrophils Percent Auto 54.5 % (45-73); Platelet Count 158 X10*3/uL (160-400); Red Blood Count 4.45 X10*6/uL (4.60-5.80); Red Cell Distribution Width 12.7 % (11.0-16.0); Troponin-I High Sensitivity < 3.5 ng/L (<3.5-35.0); White Blood Count 5.7 X10*3/uL (4.8-10.8)
[2022-04-07 18:19] LABS: INTERNATIONAL NORM RATIO 1.1 (0.9-1.1); Prothrombin Time 12.2 SEC (10.0-13.1)
--- NOTE | 2022-04-07 20:40 | PC.NURSE ---
PT reports sore throat, abd pain and lower leg swelling for a few days. Reports non productive cough, last BM was today, abd firm and distended, + 2 BLL edema. Denies pain.
== END 2022-04-07 21:14 | disposition home or self-care (01) ==
PROVIDERS: Nurse Practitioner Family; Emergency Provider Emergency Medicine; PCP Hospitalist
DX: R60.0 Localized edema (principal); R06.02 Shortness of breath; Z20.822 Contact with and (suspected) exposure to COVID-19; I10 Essential (primary) hypertension; Z79.899 Other long term (current) drug therapy; Z86.73 Personal history of transient ischemic attack (TIA), and cerebral infarction without residual deficits
CPT/HCPCS: 36415; 71046; 80048; 80076; 83735; 83880; 84484; 85025; 85610; 87635; 93005; 99283; 99284

== ENCOUNTER → 2022-04-14 08:22 | Outpatient (REF) | payer MEDICARE, MEDICAID, SELFPAY | LOC: HO.CARD 08:22 | PROVIDERS: Visit Provider Internal Medicine Cardiovascular Disease | DX: I50.9 Heart failure, unspecified (principal) | CPT/HCPCS: 93306; Q9957 ==